=== PATIENT | female | born 1960 | race Caucasian/White ===

== ENCOUNTER 2018-05-15 16:03 | Inpatient (IN) | payer MEDICAID ==
[~2018-05-15] VITALS: Ht 167.6 cm; Wt 75.8 kg
--- NOTE | ~2018-05-15 | MORECARE ---
CASE MANAGEMENT DISCHARGE SUMMARY PATIENT: SHERRY DELONG UNIT: [id number] ADM DATE: 05/15/18 AGE: 57 : 62 SEX: F ROOM/BED: D.2219 AUTHOR: GINA,DOC PHYSICIAN: REFERRING PHYSICIAN: CLEMENTE PORTER MD DATE OF SERVICE: 05/15/18 Discharge Plan Patient Name: SHERRY DELONG Facility: [facility]:[place] : 1960 Planned Disposition: Home Anticipated Discharge Date: 05/18/18 Discharge Date: Expected LOS: 3 Initial Reviewer: [email or web address] Initial Review Date: 05/15/2018 Generated: 05/15/18 7:51 pm DCP- Discharge Planning Updated by [email or web address]: Nathalia Rice on 05/15/18 5:[address] Patient Name: SHERRY DELONG Admission Status: ER Accout number: [id number] Admission Date: 05-15-2018 : 1960 Admission Diagnosis: Attending: CLEMENTE PORTER Current LOS: 1 Anticipated DC Date: 05-18-2018 Planned Disposition: Home Primary Insurance: [employer] [place] [employer] [place] Discharge Planning Comments: CM met with patient to complete initial dc planning assessment. CM educated patient on the CM role and verbal consent given by patient to complete assessment. Patient lives at home with her significant other. She reports she is independent in her care at home but she does not drive. At discharge patient plans to return home and feels this is a safe discharge. Patient denied known discharge needs at this time. CM will continue to follow and will assist as needed with dc plans/needs. See below for more assessment information. Cable Puller: Nathalia Rice RN, [facility] DCPIA - Discharge Planning Initial Assessment Updated by [email or web address]: Nathalia Rice on 05/15/18 6:45 pm * Is the patient Alert and Oriented? Yes * How many steps to enter\exit or inside your home? * PCP Don't have one. Has seen Dr. Vu one time. * Pharmacy [facility] * Preadmission Environment Home with Family * ADLs Independent * Equipment Cane * List name and contact numbers for known caregivers / representatives who currently or will assist patient after discharge: Wilmer pizarro [facility] - [phone] Linda carty- [phone] * Verbal permission to speak to the caregivers and representatives has been obtained from the patient. Yes * Community resources currently utilized None * Additional services required to return to the preadmission environment? No * Can the patient safely return to the preadmission environment? Yes * Has this patient been hospitalized within the prior 30 days at any hospital? No Last DP export: 05/15/18 5:44 Patient Name: SHERRY DELONG Page 02615 at 1851 All edits/amendments must be made on the electronic document DICTATION DATE: 05/15/181849 FIRE PROTECTION FABRICATOR: GISSELL 05/15/181849 RPT#: [id number] DC DATE: STATUS: ADM IN [facility] [address] [place] [address] END OF REPORT
--- NOTE | ~2018-05-15 | MORECARE ---
CASE MANAGEMENT DISCHARGE SUMMARY PATIENT: SHERRY DELONG UNIT: [id number] ADM DATE: 05/15/18 AGE: 57 : 62 SEX: F ROOM/BED: D.2219 AUTHOR: GINA,DOC PHYSICIAN: REFERRING PHYSICIAN: CLEMENTE PORTER MD DATE OF SERVICE: 05/17/18 Discharge Plan Patient Name: SHERRY DELONG Facility: [facility]:[place] : 1960 Planned Disposition: Home Anticipated Discharge Date: 05/18/18 Discharge Date: Expected LOS: 3 Initial Reviewer: [email or web address] Initial Review Date: 05/15/2018 Generated: 05/17/18 3:03 pm Comments DCP- Discharge Planning Updated by [email or web address]: Lesly Santos on 05/17/18 12:[address] Patient Name: SHERRY DELONG Encounter No: [id number] : 1960 Primary Insurance: [employer] [facility] Anticipated DC Date: 05-18-2018 Planned Disposition: Home External Planned Provider: : DCP follow-up note: Patient and family in agreement with discharge plan. No changes to plan. Case management will follow and assist as needed. Lesly Santos DCP- Discharge Planning Updated by [email or web address]: Nathalia Rice on 05/15/18 5:[address] Patient Name: SHERRY DELONG Admission Status: ER Accout number: [id number] Admission Date: 05-15-2018 : 1960 Admission Diagnosis: Attending: CLEMENTE PORTER Current LOS: 1 Anticipated DC Date: 05-18-2018 Planned Disposition: Home Primary Insurance: [employer] [facility] Discharge Planning Comments: CM met with patient to complete initial dc planning assessment. CM educated patient on the CM role and verbal consent given by patient to complete assessment. Patient lives at home with her significant other. She reports she is independent in her care at home but she does not drive. At discharge patient plans to return home and feels this is a safe discharge. Patient denied known discharge needs at this time. CM will continue to follow and will assist as needed with dc plans/needs. See below for more assessment information. Plaster Applicator: Nathalia Rice RN, [facility] DCPIA - Discharge Planning Initial Assessment Updated by [email or web address]: Nathalia Rice on 05/15/18 6:45 pm * Is the patient Alert and Oriented? Yes * How many steps to enter\exit or inside your home? * PCP Don't have one. Has seen Dr. Vu one time. * Pharmacy [facility] * Preadmission Environment Home with Family * ADLs Independent * Equipment Cane * List name and contact numbers for known caregivers / representatives who currently or will assist patient after discharge: Wilmer Levine - sig other - [phone] Linda Saavedra - daughter- [phone] * Verbal permission to speak to the caregivers and representatives has been obtained from the patient. Yes * Community resources currently utilized None * Additional services required to return to the preadmission environment? No * Can the patient safely return to the preadmission environment? Yes * Has this patient been hospitalized within the prior 30 days at any hospital? No Last DP export: 05/15/18 5:51 Patient Name: SHERRY DELONG Page 82732 at 1403 All edits/amendments must be made on the electronic document DICTATION DATE: 05/17/18 140 SCREENER AND BLENDER: GISSELL 05/17/18 140 RPT#: [id number] DC DATE: STATUS: ADM IN [facility] [address] [place] [address] END OF REPORT
--- NOTE | ~2018-05-15 | MORECARE ---
CASE MANAGEMENT DISCHARGE SUMMARY PATIENT: SHERRY DELONG UNIT: [id number] ADM DATE: 05/15/18 AGE: 57 : 62 SEX: F ROOM/BED: D.2219 AUTHOR: OLEG FUENTES PHYSICIAN: REFERRING PHYSICIAN: CLEMENTE PORTER MD DATE OF SERVICE: 05/15/18 Discharge Plan Patient Name: SHERRY DELONG Facility: [facility]:[place] : 1960 Planned Disposition: Home Anticipated Discharge Date: 05/18/18 Discharge Date: Expected LOS: 3 Initial Reviewer: [email or web address] Initial Review Date: 05/15/2018 Generated: 05/15/18 7:44 pm Patient Name: SHERRY DELONG Page 95406 at 1844 All edits/amendments must be made on the electronic document DICTATION DATE: 05/15/181843 COLOR DRUM WORKER: GISSELL 05/15/181843 RPT#: [id number] DC DATE: STATUS: ADM IN [facility] [address] [place] [address] END OF REPORT
--- NOTE | ~2018-05-15 | MORECARE ---
CASE MANAGEMENT DISCHARGE SUMMARY PATIENT: SHERRY DELONG UNIT: [id number] ADM DATE: 05/15/18 AGE: 57 : 62 SEX: F ROOM/BED: D.2219 AUTHOR: GINADOC PHYSICIAN: REFERRING PHYSICIAN: CLEMENTE PORTER MD DATE OF SERVICE: 05/20/18 Discharge Plan Patient Name: SHERRY DELONG Facility: [facility]:[place] : 1960 Planned Disposition: Home Anticipated Discharge Date: 05/18/18 Discharge Date: 05/17/2018 Expected LOS: 3 Initial Reviewer: [email or web address] Initial Review Date: 05/15/2018 Generated: 05/20/18 10:25 am Comments DCP- Discharge Planning Updated by [email or web address]: Lesly Santos on 05/17/18 12:[address] Patient Name: SHERRY DELONG Encounter No: [id number] : 1960 Primary Insurance: [employer] ROSSY Anticipated DC Date: 05-18-2018 Planned Disposition: Home External Planned Provider: : DCP follow-up note: Patient and family in agreement with discharge plan. No changes to plan. Case management will follow and assist as needed. Lesly Santos DCP- Discharge Planning Updated by [email or web address]: Nathalia Rice on 05/15/18 5:[address] Patient Name: SHERRY DELONG Admission Status: ER Accout number: [id number] Admission Date: 05-15-2018 : 1960 Admission Diagnosis: Attending: CLEMENTE PORTER Current LOS: 1 Anticipated DC Date: 05-18-2018 Planned Disposition: Home Primary Insurance: [employer] ROSSY Discharge Planning Comments: CM met with patient to complete initial dc planning assessment. CM educated patient on the CM role and verbal consent given by patient to complete assessment. Patient lives at home with her significant other. She reports she is independent in her care at home but she does not drive. At discharge patient plans to return home and feels this is a safe discharge. Patient denied known discharge needs at this time. CM will continue to follow and will assist as needed with dc plans/needs. See below for more assessment information. Electrophonic Engineer: Nathalia Rice RN, [facility] DCPIA - Discharge Planning Initial Assessment Updated by [email or web address]: Nathalia Rice on 05/15/18 6:45 pm * Is the patient Alert and Oriented? Yes * How many steps to enter\exit or inside your home? * PCP Don't have one. Has seen Dr. Vu one time. * Pharmacy [facility] * Preadmission Environment Home with Family * ADLs Independent * Equipment Cane * List name and contact numbers for known caregivers / representatives who currently or will assist patient after discharge: Wilmer Levine - sig other - [phone] Linda Saavedra - daughter- [phone] * Verbal permission to speak to the caregivers and representatives has been obtained from the patient. Yes * Community resources currently utilized None * Additional services required to return to the preadmission environment? No * Can the patient safely return to the preadmission environment? Yes * Has this patient been hospitalized within the prior 30 days at any hospital? No Last DP export: 05/17/18 1:03 Patient Name: SHERRY DELONG Page 16845 at 0925 All edits/amendments must be made on the electronic document DICTATION DATE: 05/20/18924 MARKETING SUPPORT ASSISTANT: GISSELL 05/20/18924 RPT#: [id number] DC DATE:05/17/18 STATUS: DIS IN [facility] [address] [place] [address] END OF REPORT
[~2018-05-15 16:03] MED LIST: ACETAMINOPHEN325 MG PO; BACTRIM DS TABL1 TAB PO; BAYER CHEWABLE81 MG PO; HYDROCODON-ACE1 EAC7 PO; PERCOCET 10/3251 TA1 PO; PLAVIX75 MG PO; SLEEP AID25 M1 PO; ZOFRAN4 MG PO
[2018-05-15] MEDS ORDERED: LAXATIVE (16:12)
[2018-05-15] MEDS ORDERED: TYLENOL PM1 TAB (16:12)
[2018-05-15 16:48] LABS: APPEARANCE HAZY (CLEAR); BACTERIA FEW /hpf (NONE SEEN); BILIRUBIN NEGATIVE (NEGATIVE); COLOR YELLOW (YELLOW); EPITHELIAL CELLS 0-5 /hpf (0-5); GLUCOSE NEGATIVE (NEGATIVE); KETONE NEGATIVE (NEGATIVE); NITRITE NEGATIVE (NEGATIVE); PROTEIN NEGATIVE (NEGATIVE); SPECIFIC GRAVITY 1.015 (1.005-1.020); UROBILINOGEN NORMAL (NORMAL); WHITE CELLS - URINE 0-5 /hpf (0-5)
[2018-05-15 16:49] LABS: AMORPHOUS SEDIMENT <1+ /lpf (NONE SEEN)
[2018-05-15 17:04] LABS: HEMATOCRIT 42.7 % (36.0-48.0); HEMOGLOBIN 14.8 g/dL (12-16); MCH 34.8 pg (26.0-34.0); MCHC 34.7 g/dL (31.0-37.0); MCV 100.5 fL (80.0-100.0); MEAN PLATELET VOLUME 10.6 fL (7.4-10.4); PLATELET COUNT 407 10x3/uL (130-400); RBC 4.25 10x6/uL (4.00-5.40); RDW 14.1 % (11.5-14.5); WBC 26.4 10x3/uL (4.8-10.8)
[2018-05-15 17:16] LABS: ANION GAP 14.2 mmol/L (8-16); BILIRUBIN - TOTAL 0.84 mg/dL (0.2-1.3); CALCIUM 9.5 mg/dL (8.5-10.1); CARBON DIOXIDE 26.2 mmol/L (21.0-32.0); CREATININE - SERUM 0.9 mg/dL (0.6-1.3); POTASSIUM - SERUM 3.4 mmol/L (3.5-5.1); PROTEIN - SERUM 7.6 g/dL (6.4-8.2)
[2018-05-15 17:20] LABS: TROPONIN-I 0.036 ng/mL (0.000-0.060)
[2018-05-15 17:28] LABS: LYMPHOCYTES 5 % (15-50); MONOCYTES 3 % (2-11); NEUTROPHILS 89 % (40-80)
[2018-05-15 17:29] LABS: PLATELET ESTIMATE NORMAL; PLATELET MORPHOLOGY NORMAL PLT MORPH
[2018-05-15] MEDS ORDERED: BENADRYL25 MG PO (18:55)
[2018-05-15 20:06] VITALS: BP 130/75
[2018-05-15 20:32] VITALS: BP 130/75; BMI 27.0
[2018-05-16 04:26] VITALS: BP 120/54
[2018-05-16 06:47] LABS: BASOPHILS 0.1 % (0-2); EOSINOPHILS 0.4 % (0-7); HEMATOCRIT 38.1 % (36.0-48.0); HEMOGLOBIN 12.7 g/dL (12-16); IMMATURE GRANULOCYTES 0.3 % (0-5); MCHC 33.3 g/dL (31.0-37.0); MCV 102.1 fL (80.0-100.0); MEAN PLATELET VOLUME 11.1 fL (7.4-10.4); MONOCYTES 4.5 % (2-11); NEUTROPHILS 84.7 % (40-80); PLATELET COUNT 293 10x3/uL (130-400); RBC 3.73 10x6/uL (4.00-5.40); RDW 14.3 % (11.5-14.5); WBC 21.5 10x3/uL (4.8-10.8)
[2018-05-16 06:53] LABS: ALBUMIN 2.4 g/dL (3.4-5.0); ALKALINE PHOSPHATASE 210 U/L (46-116); CALCIUM 8.4 mg/dL (8.5-10.1); CARBON DIOXIDE 25.9 mmol/L (21.0-32.0); CHLORIDE - SERUM 99 mmol/L (98-107); CHOL - HDL RATIO 6.4 ratio (2.3-4.1); CHOLESTEROL, TOTAL 166 mg/dL (0-200); CREATININE - SERUM 0.7 mg/dL (0.6-1.3); HDL CHOLESTEROL 26 mg/dL (32-96); LDL CHOLESTEROL 122 mg/dL (0-100); LDL-HDL RATIO 4.7 ratio (1.5-3.5); LIPASE 492 U/L (73-393); MAGNESIUM - SERUM 1.6 mg/dL (1.8-2.4); PHOSPHOROUS 2.6 mg/dL (2.5-4.9); PROTEIN - SERUM 6.2 g/dL (6.4-8.2); SODIUM 135 mmol/L (136-145); TRIGLYCERIDE 93 mg/dL (30-200); UREA NITROGEN 9 mg/dL (7-18); eGFR NON AFRICAN AMERICAN > 90 mL/min (90-120)
[2018-05-16 06:58] LABS: AMYLASE - SERUM 229 U/L (25-115)
[2018-05-16 07:00] LABS: ALT (SGPT) 31 U/L (10-68); CALC OSMOLALITY 266 mosm/kg (275-300); GLUCOSE 69 mg/dL (74-106); POTASSIUM - SERUM 2.9 mmol/L (3.5-5.1)
[2018-05-16 09:47] VITALS: BP 123/67
[2018-05-16 11:47] LABS: CHOL - HDL RATIO 6.4 ratio (2.3-4.1); LDL-HDL RATIO 4.7 ratio (1.5-3.5); MAGNESIUM - SERUM 1.6 mg/dL (1.8-2.4)
[2018-05-16 13:46] VITALS: BP 148/52
[2018-05-16 16:47] VITALS: BP 110/68
[2018-05-16 21:29] VITALS: BP 113/60
[2018-05-17 05:02] VITALS: BP 117/71
[2018-05-17 05:25] LABS: BASOPHILS 0.2 % (0-2); HEMATOCRIT 34.2 % (36.0-48.0); IMMATURE GRANULOCYTES 0.2 % (0-5); LYMPHOCYTES 20.9 % (15-50); MCH 33.3 pg (26.0-34.0); MCHC 32.2 g/dL (31.0-37.0); MCV 103.6 fL (80.0-100.0); MEAN PLATELET VOLUME 11.4 fL (7.4-10.4); MONOCYTES 4.6 % (2-11); NEUTROPHILS 71.1 % (40-80); PLATELET COUNT 264 10x3/uL (130-400); RDW 14.2 % (11.5-14.5)
[2018-05-17 05:41] LABS: CALC OSMOLALITY 276 mosm/kg (275-300); CARBON DIOXIDE 25.8 mmol/L (21.0-32.0); CHLORIDE - SERUM 105 mmol/L (98-107); CREATININE - SERUM 0.6 mg/dL (0.6-1.3); LIPASE 229 U/L (73-393); POTASSIUM - SERUM 3.3 mmol/L (3.5-5.1); SODIUM 141 mmol/L (136-145); UREA NITROGEN 7 mg/dL (7-18); eGFR NON AFRICAN AMERICAN > 90 mL/min (90-120)
[2018-05-17 05:47] LABS: WBC 12.2 10x3/uL (4.8-10.8)
[2018-05-17 05:52] LABS: AMYLASE - SERUM 83 U/L (25-115); GLUCOSE 63 mg/dL (74-106)
[2018-05-17 08:44] VITALS: BP 122/69
[2018-05-17 09:50] LABS: MAGNESIUM - SERUM 2.3 mg/dL (1.8-2.4)
[2018-05-17] MEDS ORDERED: THIAMINE HCL50 MG PO (12:19)
[2018-05-17] MEDS ORDERED: FOLATE0.4 MG PO (12:19)
[2018-05-17] MEDS ORDERED: Nicoderm [PBKC] TRANSDERM (12:19)
[2018-05-17 12:20] VITALS: BP 131/63
[2018-05-17 12:31] VITALS: Ht 167.6 cm; Wt 75.8 kg
== END 2018-05-17 16:30 | disposition home or self-care (01) | DRG 439 ==
LOC: D.ER 16:03 → D.MS 18:16
PROVIDERS: Family Medicine; Internal Medicine Nephrology
DX: K85.20 Alcohol induced acute pancreatitis without necrosis or infection (principal); F17.213 Nicotine dependence, cigarettes, with withdrawal; D64.9 Anemia, unspecified; K29.70 Gastritis, unspecified, without bleeding; E87.6 Hypokalemia; E83.42 Hypomagnesemia

== ENCOUNTER 2019-01-04 05:59 | Inpatient (IN) | payer MEDICAID ==
[~2019-01-04] VITALS: Ht 167.6 cm; Wt 72.6 kg
[~2019-01-04 05:59] MED LIST changes: +BENADRYL25 MG PO; +FOLATE0.4 MG PO; +LAXATIVE; +Nicoderm [PBKC] TRANSDERM; +THIAMINE HCL50 MG PO; +TYLENOL PM1 TAB
--- NOTE | 2019-01-04 06:11 | NUR ---
MENTAL HEALTH NURSE MADE AWARE OF NEED FOR ASSESSMENT.
--- NOTE | 2019-01-04 06:26 | NUR ---
DR LAST NOTIFIED AND REVIEWED PT's BEHAVIOR AND ASSESSMENT RESULTS. PT IS A LOW RISK PER DR LAST. DR LAST STATED TO GIVE RESOURCES TO PT AT TIME OF DISCHARGE. NO FURTHER ORDERS AT THIS TIE. RESOURCES REVIEWED WITH PT AND SHE VERBALIZED UNDERSTANDING.
[2019-01-04 06:32] LABS: BASOPHILS 0.1 % (0-2); EOSINOPHILS 0.1 % (0-7); HEMATOCRIT 38.2 % (36.0-48.0); HEMOGLOBIN 13.3 g/dL (12-16); IMMATURE GRANULOCYTES 0.3 % (0-5); LYMPHOCYTES 5.1 % (15-50); MCH 32.7 pg (26.0-34.0); MCHC 34.8 g/dL (31.0-37.0); MCV 93.9 fL (80.0-100.0); MEAN PLATELET VOLUME 10.8 fL (7.4-10.4); MONOCYTES 4.1 % (2-11); NEUTROPHILS 90.3 % (40-80); RBC 4.07 10x6/uL (4.00-5.40); RDW 14.1 % (11.5-14.5); WBC 16.7 10x3/uL (4.8-10.8)
--- NOTE | 2019-01-04 06:34 | NUR ---
GLYCERIN SWABS PROVIDED PER PT REQUESTING SOME WATER TO DRINK.
[2019-01-04 06:35] VITALS: BP 198/86
[2019-01-04 06:47] LABS: ALBUMIN 3.1 g/dL (3.4-5.0); ALKALINE PHOSPHATASE 333 U/L (46-116); ALT (SGPT) 76 U/L (10-68); BILIRUBIN - TOTAL 3.24 mg/dL (0.2-1.3); CALC OSMOLALITY 278 mosm/kg (275-300); CALCIUM 9.4 mg/dL (8.5-10.1); CARBON DIOXIDE 24.8 mmol/L (21.0-32.0); CHLORIDE - SERUM 100 mmol/L (98-107); CREATININE - SERUM 0.8 mg/dL (0.6-1.3); POTASSIUM - SERUM 3.1 mmol/L (3.5-5.1); PROTEIN - SERUM 7.5 g/dL (6.4-8.2); SODIUM 138 mmol/L (136-145); UREA NITROGEN 7 mg/dL (7-18); eGFR NON AFRICAN AMERICAN 78 mL/min (90-120)
[2019-01-04 06:48] LABS: GLUCOSE 189 mg/dL (74-106)
[2019-01-04 06:50] LABS: PLATELET COUNT 435 10x3/uL (130-400)
[2019-01-04 06:51] LABS: AMYLASE - SERUM 237 U/L (25-115); LIPASE 1024 U/L (73-393); MAGNESIUM - SERUM 1.3 mg/dL (1.8-2.4); TROPONIN-I < 0.017 ng/mL (0.000-0.060)
[2019-01-04 07:00] VITALS: BP 190/71
--- NOTE | 2019-01-04 07:05 | NUR ---
BEDSIDE REPORT HANDED OFF TO VINICIO HOU RN VIA SBAR.
--- NOTE | 2019-01-04 10:15 | NUR ---
RECEIVED PT FROM ER VIA WHEELCHAIR ACCOMPANIED BY ER STAFF. ALERT AND ORIENTED. UP AD ALLEN. IV TO RIGHT HAND, BANANA BAG INFUSING. SITE PATENT WITHOUT REDNESS OR SWELLING. IV TO LEFT THUMB, ANTIBIOTIC INFUSING. SITE PATENT WITHOUT REDNESS OR SWELLING. PT NPO. ON ELECTROLYTE PROTOCOL. NO C/O PAIN. NO S/S OF ACUTE DISTRESS NOTED. CALL LIGHT IN REACH. WILL CONTINUE TO MONITOR.
[2019-01-04 11:03] LABS: APPEARANCE CLEAR (CLEAR); BACTERIA FEW /hpf (NONE SEEN); BILIRUBIN 1+ (NEGATIVE); COLOR DK YELLOW (YELLOW); EPITHELIAL CELLS OCC /hpf (0-5); GLUCOSE NEGATIVE (NEGATIVE); KETONE NEGATIVE (NEGATIVE); MUCUS <1+ /lpf (NONE SEEN); NITRITE NEGATIVE (NEGATIVE); PROTEIN NEGATIVE (NEGATIVE); RED CELLS - URINE RARE /hpf (0-5); SPECIFIC GRAVITY 1.015 (1.005-1.020); WHITE CELLS - URINE OCC /hpf (0-5)
[2019-01-04 11:04] LABS: UDS - AMPHET NEGATIVE QUAL (NEGATIVE); UDS - BARB NEGATIVE QUAL (NEGATIVE); UDS - BENZO NEGATIVE QUAL (NEGATIVE); UDS - COCAINE NEGATIVE QUAL (NEGATIVE); UDS - OPIATE POSITIVE QUAL (NEGATIVE); UDS - PCP NEGATIVE QUAL (NEGATIVE); UDS - THC POSITIVE QUAL (NEGATIVE)
[2019-01-04 12:00] VITALS: BP 111/48
[2019-01-04 16:12] VITALS: BP 111/48; BMI 25.8
[2019-01-04 17:06] VITALS: BP 104/56
--- NOTE | 2019-01-04 18:52 | NUR ---
PT RESTING IN BED, EYES OPEN. NO C/O PAIN. NO S/S OF ACUTE DISTRESS NOTED. PT DENIES ANYTHING FURTHER. WILL CONTINUE TO MONITOR.
[2019-01-04 21:07] VITALS: BP 115/59
[2019-01-05] VITALS (12 sets, daily range): BP systolic 108–162; BP diastolic 52–80; Ht 167.6 cm; Wt 72.6 kg
--- NOTE | 2019-01-05 02:31 | NUR ---
REC'D CHGE. OF SHIFT WATCHING TV DENIES N/V OR ABDOMINAL PAIN AT PRESENT TIME, WILL CONTINUE TO MONITOR FOR ANY CHGES. AND FOLLOW CURRENT PLAN OF CARE.
[2019-01-05 06:29] LABS: BASOPHILS 0.1 % (0-2); EOSINOPHILS 4.5 % (0-7); HEMATOCRIT 34.8 % (36.0-48.0); HEMOGLOBIN 11.4 g/dL (12-16); IMMATURE GRANULOCYTES 0.4 % (0-5); LYMPHOCYTES 31.3 % (15-50); MCH 30.9 pg (26.0-34.0); MCHC 32.8 g/dL (31.0-37.0); MCV 94.3 fL (80.0-100.0); MEAN PLATELET VOLUME 10.9 fL (7.4-10.4); MONOCYTES 5.2 % (2-11); NEUTROPHILS 58.5 % (40-80); RBC 3.69 10x6/uL (4.00-5.40); RDW 14.6 % (11.5-14.5)
[2019-01-05 06:48] LABS: PLATELET COUNT 293 10x3/uL (130-400); WBC 6.9 10x3/uL (4.8-10.8)
--- NOTE | 2019-01-05 06:49 | NUR ---
I have reviewed this patient and I concur with the Shift Assessment completed by the Licensed Practical Nurse today this shift.
[2019-01-05 06:55] LABS: ALBUMIN 2.4 g/dL (3.4-5.0); ALKALINE PHOSPHATASE 255 U/L (46-116); ALT (SGPT) 63 U/L (10-68); BILIRUBIN - TOTAL 4.69 mg/dL (0.2-1.3); CALCIUM 8.5 mg/dL (8.5-10.1); CARBON DIOXIDE 24.9 mmol/L (21.0-32.0); CHLORIDE - SERUM 108 mmol/L (98-107); CREATININE - SERUM 0.7 mg/dL (0.6-1.3); LIPASE 744 U/L (73-393); PROTEIN - SERUM 6.4 g/dL (6.4-8.2); SODIUM 141 mmol/L (136-145); eGFR NON AFRICAN AMERICAN > 90 mL/min (90-120)
[2019-01-05 06:58] LABS: AMYLASE - SERUM 157 U/L (25-115); CALC OSMOLALITY 278 mosm/kg (275-300); GLUCOSE 113 mg/dL (74-106); INR 0.98 (0.85-1.17); MAGNESIUM - SERUM 2.8 mg/dL (1.8-2.4); POTASSIUM - SERUM 3.7 mmol/L (3.5-5.1); PROTIME 12.5 SECONDS (11.6-15.0); UREA NITROGEN 5 mg/dL (7-18)
--- NOTE | 2019-01-05 07:45 | NUR ---
PATIENT SAYS SHE IS "PISSED BECUASE SHE CAN'T GET THE PHONE TO WORK" SAID THAT SHE PRESSES 9. WISHES TO KNOW WHEN HER PROCEDURE IS. CL AND PHONE IN REACH. REMA
[2019-01-06] VITALS: BP 138/67
[2019-01-06 04:00] VITALS: BP 146/73
[2019-01-06 07:29] LABS: BASOPHILS 0.2 % (0-2); EOSINOPHILS 0.8 % (0-7); HEMATOCRIT 30.5 % (36.0-48.0); HEMOGLOBIN 10.1 g/dL (12-16); IMMATURE GRANULOCYTES 0.2 % (0-5); LYMPHOCYTES 25.3 % (15-50); MCH 31.6 pg (26.0-34.0); MCHC 33.1 g/dL (31.0-37.0); MCV 95.3 fL (80.0-100.0); MEAN PLATELET VOLUME 11.3 fL (7.4-10.4); MONOCYTES 5.5 % (2-11); PLATELET COUNT 287 10x3/uL (130-400); RDW 14.7 % (11.5-14.5)
[2019-01-06 07:31] LABS: WBC 9.7 10x3/uL (4.8-10.8)
--- NOTE | 2019-01-06 07:34 | NUR ---
I have reviewed this patient and I concur with the Shift Assessment completed by the Licensed Practical Nurse today this shift.
[2019-01-06 07:54] LABS: ALBUMIN 2.4 g/dL (3.4-5.0); ALKALINE PHOSPHATASE 230 U/L (46-116); ALT (SGPT) 54 U/L (10-68); AMYLASE - SERUM 126 U/L (25-115); BILIRUBIN - TOTAL 1.48 mg/dL (0.2-1.3); CALCIUM 8.4 mg/dL (8.5-10.1); CARBON DIOXIDE 25.3 mmol/L (21.0-32.0); CHLORIDE - SERUM 109 mmol/L (98-107); CREATININE - SERUM 0.6 mg/dL (0.6-1.3); GLUCOSE 81 mg/dL (74-106); LIPASE 469 U/L (73-393); POTASSIUM - SERUM 3.8 mmol/L (3.5-5.1); PROTEIN - SERUM 5.6 g/dL (6.4-8.2); SODIUM 143 mmol/L (136-145); eGFR NON AFRICAN AMERICAN > 90 mL/min (90-120)
[2019-01-06 07:56] LABS: CALC OSMOLALITY 281 mosm/kg (275-300); UREA NITROGEN 7 mg/dL (7-18)
--- NOTE | 2019-01-06 08:23 | NUR ---
PATIENT WONDERING WHAT TIME HER MRI WILL BE. I TOLD HER I WILL TRY TO FIND OUT. STATES HER CHILDREN DO NOT EVEN KNOW SHE WAS IN THE HOSPITAL. CL IN REACH. NO FURTHER NEEDS.
[2019-01-06 08:47] VITALS: BP 164/81
[2019-01-06 14:10] VITALS: BP 146/58
[2019-01-06 16:03] VITALS: BP 165/77
[2019-01-06 20:00] VITALS: BP 159/71
--- NOTE | 2019-01-06 20:00 | NUR ---
ALERT SITTING UP IN BED, NO APPARENT DISTRESS, SEE SHIFT ASSESSMENT, CALL LIGHT IN REACH
[2019-01-07] VITALS: BP 153/77
[2019-01-07 04:00] VITALS: BP 105/79
[2019-01-07 06:56] LABS: ALBUMIN 2.4 g/dL (3.4-5.0); ALKALINE PHOSPHATASE 208 U/L (46-116); ALT (SGPT) 48 U/L (10-68); AMYLASE - SERUM 149 U/L (25-115); BILIRUBIN - TOTAL 1.09 mg/dL (0.2-1.3); CALCIUM 8.8 mg/dL (8.5-10.1); CARBON DIOXIDE 27.1 mmol/L (21.0-32.0); CHLORIDE - SERUM 110 mmol/L (98-107); CREATININE - SERUM 0.6 mg/dL (0.6-1.3); GLUCOSE 94 mg/dL (74-106); LIPASE 612 U/L (73-393); POTASSIUM - SERUM 3.3 mmol/L (3.5-5.1); PROTEIN - SERUM 6.2 g/dL (6.4-8.2); SODIUM 146 mmol/L (136-145); eGFR NON AFRICAN AMERICAN > 90 mL/min (90-120)
[2019-01-07 06:58] LABS: CALC OSMOLALITY 287 mosm/kg (275-300); UREA NITROGEN 4 mg/dL (7-18)
[2019-01-07 07:44] LABS: BASOPHILS 0.4 % (0-2); EOSINOPHILS 4.4 % (0-7); HEMATOCRIT 34.8 % (36.0-48.0); HEMOGLOBIN 11.3 g/dL (12-16); IMMATURE GRANULOCYTES 0.3 % (0-5); LYMPHOCYTES 43.9 % (15-50); MCH 31.1 pg (26.0-34.0); MCHC 32.5 g/dL (31.0-37.0); MCV 95.9 fL (80.0-100.0); MEAN PLATELET VOLUME 11.4 fL (7.4-10.4); MONOCYTES 3.9 % (2-11); NEUTROPHILS 47.1 % (40-80); PLATELET COUNT 299 10x3/uL (130-400); RBC 3.63 10x6/uL (4.00-5.40); RDW 14.9 % (11.5-14.5); WBC 7.7 10x3/uL (4.8-10.8)
[2019-01-07 08:29] VITALS: BP 179/87
--- NOTE | 2019-01-07 12:37 | NUR ---
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 PATIENT WAS NPO THIS MORING FOR MRCP. PATIENT STATED SHE HAS ONLY HAD CLEAR LIQUIDS SINCE BEING IN HOSPITAL AND IS READY FOR SOME "REAL FOOD". NOTED PATEINT IS NOW ON LOW RESIDUE DIET. OBSERVED TRAY CART WITH CORRECT DIET ORDERS. NOTIFIED PATIENT, SHE WAS VERY APPRECIATIVE AND PLEASED TO RECEIVE LOW RESIDUE MEAL. WILL MONTIOR DIET TOLERANCE. RD FOLLOWING
[2019-01-07 13:32] VITALS: BP 183/88
--- NOTE | 2019-01-07 14:50 | NUR ---
PATIENT WALKING THE HALLS WITH FAMILY. NO CONCERNS AT THIS TIME.
[2019-01-07 18:19] VITALS: BP 166/76
--- NOTE | 2019-01-07 19:15 | NUR ---
RECEIVED CARE FROM DAY NURSE. SITTING UP IN BED WITH JENNY AT SIDE. REPORTS NO NEEDS AT THIS TIME. CALL LIGHT AT SIDE.
[2019-01-07 21:13] VITALS: BP 116/65
--- NOTE | 2019-01-08 03:00 | NUR ---
I have reviewed this patient and I concur with the Shift Assessment completed by the Licensed Practical Nurse today this shift.
[2019-01-08 05:10] VITALS: BP 168/85
[2019-01-08 07:06] LABS: BASOPHILS 0.6 % (0-2); EOSINOPHILS 7.2 % (0-7); HEMATOCRIT 37.2 % (36.0-48.0); HEMOGLOBIN 12.3 g/dL (12-16); IMMATURE GRANULOCYTES 0.4 % (0-5); LYMPHOCYTES 40.2 % (15-50); MCH 31.9 pg (26.0-34.0); MCHC 33.1 g/dL (31.0-37.0); MCV 96.4 fL (80.0-100.0); MEAN PLATELET VOLUME 11.7 fL (7.4-10.4); MONOCYTES 6.2 % (2-11); NEUTROPHILS 45.4 % (40-80); PLATELET COUNT 309 10x3/uL (130-400); RBC 3.86 10x6/uL (4.00-5.40); WBC 7.1 10x3/uL (4.8-10.8)
[2019-01-08 07:32] LABS: ALBUMIN 2.5 g/dL (3.4-5.0); ALKALINE PHOSPHATASE 221 U/L (46-116); ALT (SGPT) 39 U/L (10-68); AMYLASE - SERUM 161 U/L (25-115); BILIRUBIN - TOTAL 0.82 mg/dL (0.2-1.3); CALC OSMOLALITY 283 mosm/kg (275-300); CARBON DIOXIDE 28.1 mmol/L (21.0-32.0); CHLORIDE - SERUM 108 mmol/L (98-107); CREATININE - SERUM 0.7 mg/dL (0.6-1.3); GLUCOSE 106 mg/dL (74-106); LIPASE 810 U/L (73-393); PROTEIN - SERUM 6.5 g/dL (6.4-8.2); SODIUM 144 mmol/L (136-145); UREA NITROGEN 4 mg/dL (7-18); eGFR NON AFRICAN AMERICAN > 90 mL/min (90-120)
[2019-01-08 08:45] VITALS: BP 171/93
[2019-01-08 12:41] VITALS: BP 168/108
--- NOTE | 2019-01-08 12:47 | MORECARE ---
CASE MANAGEMENT DISCHARGE SUMMARY PATIENT: SHERRY DELONG UNIT: [id number] ADM DATE: 01/04/19 AGE: 58 : 62 SEX: F ROOM/BED: D.2239 AUTHOR: OLEG FUENTES PHYSICIAN: REFERRING PHYSICIAN: CLEMENTE PORTER MD DATE OF SERVICE: 01/08/19 Discharge Plan Patient Name: SHERRY DELONG Facility: [facility]:[place] : 1960 Planned Disposition: Home Anticipated Discharge Date: 01/08/19 Discharge Date: Expected LOS: 4 Initial Reviewer: [email or web address] Initial Review Date: 01/04/2019 Generated: 01/08/19 1:47 pm Patient Name: SHERRY DELONG Page 89710 at 1247 All edits/amendments must be made on the electronic document DICTATION DATE: 01/08/19 1246 DIRECTOR OF EARLY CHILDHOOD EDUCATION: GISSELL 01/08/19 1246 RPT#: [id number] DC DATE: STATUS: ADM IN [facility] [address] [place] [address] END OF REPORT
== END 2019-01-08 15:41 | disposition home or self-care (01) | DRG 444 ==
LOC: D.ER 05:59 → D.MS 07:29
PROVIDERS: Family Medicine; Internal Medicine Gastroenterology; ADMIT Internal Medicine Nephrology; ATTEND Internal Medicine Nephrology
PROC: 0F798DZ Dilation of Common Bile Duct with Intraluminal Device, Via Natural or Artificial Opening Endoscopic (ICD-10-PCS; principal; 2019-01-05 15:30)
DX: K83.1 Obstruction of bile duct (principal); K85.20 Alcohol induced acute pancreatitis without necrosis or infection; F17.203 Nicotine dependence unspecified, with withdrawal; K86.0 Alcohol-induced chronic pancreatitis; E83.42 Hypomagnesemia; E87.6 Hypokalemia; K21.9 Gastro-esophageal reflux disease without esophagitis; K29.70 Gastritis, unspecified, without bleeding; K58.9 Irritable bowel syndrome, unspecified; F32.9 Major depressive disorder, single episode, unspecified; F10.10 Alcohol abuse, uncomplicated; K80.20 Calculus of gallbladder without cholecystitis without obstruction; K80.50 Calculus of bile duct without cholangitis or cholecystitis without obstruction

== ENCOUNTER → 2019-02-10 08:58 | Outpatient (CLI) | payer MEDICAID ==
[2019-01-05 10:02] VITALS: BMI 25.8
[2019-02-10 09:47] LABS: BASOPHILS 0.4 % (0-2); EOSINOPHILS 4.8 % (0-7); HEMATOCRIT 38.1 % (36.0-48.0); HEMOGLOBIN 12.6 g/dL (12-16); IMMATURE GRANULOCYTES 0.1 % (0-5); LYMPHOCYTES 31.5 % (15-50); MCH 31.7 pg (26.0-34.0); MCHC 33.1 g/dL (31.0-37.0); MEAN PLATELET VOLUME 10.3 fL (7.4-10.4); MONOCYTES 4.5 % (2-11); NEUTROPHILS 58.7 % (40-80); PLATELET COUNT 266 10x3/uL (130-400); RBC 3.97 10x6/uL (4.00-5.40); RDW 13.4 % (11.5-14.5); WBC 7.1 10x3/uL (4.8-10.8)
[2019-02-10 10:08] LABS: ALBUMIN 3.4 g/dL (3.4-5.0); ALKALINE PHOSPHATASE 90 U/L (46-116); ALT (SGPT) 14 U/L (10-68); AMYLASE - SERUM 79 U/L (25-115); BILIRUBIN - TOTAL 0.35 mg/dL (0.2-1.3); CALC OSMOLALITY 277 mosm/kg (275-300); CARBON DIOXIDE 24.8 mmol/L (21.0-32.0); CHLORIDE - SERUM 105 mmol/L (98-107); CREATININE - SERUM 0.7 mg/dL (0.6-1.3); GLUCOSE 89 mg/dL (74-106); LIPASE 162 U/L (73-393); POTASSIUM - SERUM 4.1 mmol/L (3.5-5.1); PROTEIN - SERUM 6.6 g/dL (6.4-8.2); SODIUM 141 mmol/L (136-145); UREA NITROGEN 6 mg/dL (7-18); eGFR NON AFRICAN AMERICAN > 90 mL/min (90-120)
== END | disposition home or self-care (01) ==
LOC: D.LAB 08:58 → D.US 10:00
PROVIDERS: ATTEND Internal Medicine Gastroenterology
DX: R10.13 Epigastric pain (principal); R94.7 Abnormal results of other endocrine function studies

== ENCOUNTER → 2019-02-16 09:53 | Outpatient (CLI) | payer MEDICAID ==
[2019-01-05 10:02] VITALS: BMI 25.8
[~2019-02-16 09:53] MED LIST changes: +ATIVAN0.5 MG PO; +BISACODYL5 MG PO; +CLEOCIN HCL300 MG PO; +FLORAJEN3 CAPS460 MG PO; -LAXATIVE; +LEVAQUIN750 MG PO; +LINZESS PO; +LIPITOR20 MG PO
== END | disposition home or self-care (01) ==
LOC: D.RAD 09:53
PROVIDERS: ATTEND Internal Medicine Gastroenterology
DX: R10.9 Unspecified abdominal pain (principal)

== ENCOUNTER 2019-03-18 13:51 | Inpatient (IN) | payer MEDICAID ==
[~2019-03-18] VITALS: Ht 167.6 cm; Wt 83.0 kg
[~2019-03-18 13:51] MED LIST changes: -ATIVAN0.5 MG PO; -BISACODYL5 MG PO; -CLEOCIN HCL300 MG PO; -FLORAJEN3 CAPS460 MG PO; -LEVAQUIN750 MG PO; -LIPITOR20 MG PO
[2019-03-18 14:29] LABS: WBC 22.3 10x3/uL (4.8-10.8)
[2019-03-18 14:30] LABS: HEMATOCRIT 48.5 % (36.0-48.0); MCH 32.6 pg (26.0-34.0); MCHC 35.1 g/dL (31.0-37.0); MCV 92.9 fL (80.0-100.0); MEAN PLATELET VOLUME 10.8 fL (7.4-10.4); PLATELET COUNT 345 10x3/uL (130-400); RBC 5.22 10x6/uL (4.00-5.40); RDW 13.9 % (11.5-14.5)
[2019-03-18 14:41] LABS: ALBUMIN 3.3 g/dL (3.4-5.0); ALKALINE PHOSPHATASE 88 U/L (46-116); ALT (SGPT) 11 U/L (10-68); BILIRUBIN - TOTAL 1.09 mg/dL (0.2-1.3); CALC OSMOLALITY 269 mosm/kg (275-300); CALCIUM 9.3 mg/dL (8.5-10.1); CARBON DIOXIDE 21.2 mmol/L (21.0-32.0); CHLORIDE - SERUM 97 mmol/L (98-107); CREATININE - SERUM 1.1 mg/dL (0.6-1.3); POTASSIUM - SERUM 3.6 mmol/L (3.5-5.1); PROTEIN - SERUM 8.3 g/dL (6.4-8.2); SODIUM 132 mmol/L (136-145); UREA NITROGEN 13 mg/dL (7-18); eGFR NON AFRICAN AMERICAN 54 mL/min (90-120)
[2019-03-18 14:42] LABS: GLUCOSE 192 mg/dL (74-106)
[2019-03-18 14:45] LABS: AMYLASE - SERUM 66 U/L (25-115); LIPASE 132 U/L (73-393); TROPONIN-I < 0.017 ng/mL (0.000-0.060)
[2019-03-18 15:41] LABS: EOSINOPHILS 1 % (0-7); LYMPHOCYTES 15 % (15-50); MONOCYTES 2 % (2-11); NEUTROPHILS 82 % (40-80); PLATELET ESTIMATE NORMAL
--- NOTE | 2019-03-18 15:55 | NUR ---
VERBAL ORDER FROM CAMMY REZA TO START IV FLUIDS 2000 CC STAT. UNABLE TO GET 2ND IV STARTED. WAS GIVEN VERBAL OKAY TO START ONE 1000ML BAG OF NS THEN ONE IMMEDIATELY WHEN THE FIRST WAS FINISHED.
--- NOTE | 2019-03-18 16:00 | NUR ---
STARTED ONE OF TWO BAGS OF NS 0.9% BOLUS.
[2019-03-18 16:44] VITALS: BP 106/68
--- NOTE | 2019-03-18 17:00 | NUR ---
DISCONTINUED ONE OF TWO BAGS OF NS 0.9% AND STARTED 2ND BAG OF NS 0.9% IN L AC.
--- NOTE | 2019-03-18 18:07 | NUR ---
DISCONTINUED 2ND OF TWO BAGS OF NS 0.9% BOLUS.
[2019-03-18] MEDS ORDERED: ATIVAN0.5 MG PO (20:17)
[2019-03-18] MEDS ORDERED: LIPITOR20 MG PO (20:19)
[2019-03-18] MEDS ORDERED: BISACODYL5 MG PO (20:20)
[2019-03-18 21:00] VITALS: BP 122/57
[2019-03-18 21:58] VITALS: BP 122/84; BMI 27.8
[2019-03-18 22:00] VITALS: BP 107/52
[2019-03-18 23:00] VITALS: BP 98/58
--- NOTE | 2019-03-18 23:00 | NUR ---
PLAN DISCUSSED WITH PATIENT. PATIENT DENIES FURTHER NEEDS OR CONCERNS AT THIS TIME. BED LOWERED/LOCKED, CALL LIGHT IN REACH. VSS. WILL CONTINUE TO MONITOR.
[2019-03-19] VITALS (22 sets, daily range): BP systolic 99–137; BP diastolic 57–101
--- NOTE | 2019-03-19 01:00 | NUR ---
PATIENT RESTING, EASILY AROUSABLE. VSS. IV INFUSING WITHOUT SIGNS OF INFILTRATION. DENIES NEEDS OR CONCERNS. BED LOWERED/LOCKED AND CALL LIGHT WITHIN REACH. WILL CONTINUE TO MONITOR.
[2019-03-19 03:22] LABS: BASOPHILS 0.1 % (0-2); EOSINOPHILS 0 % (0-7); HEMATOCRIT 35.7 % (36.0-48.0); HEMOGLOBIN 12.3 g/dL (12-16); IMMATURE GRANULOCYTES 0.4 % (0-5); LYMPHOCYTES 10.6 % (15-50); MCH 31.9 pg (26.0-34.0); MCHC 34.5 g/dL (31.0-37.0); MCV 92.7 fL (80.0-100.0); MEAN PLATELET VOLUME 10.3 fL (7.4-10.4); MONOCYTES 3.3 % (2-11); NEUTROPHILS 85.6 % (40-80); PLATELET COUNT 259 10x3/uL (130-400); RBC 3.85 10x6/uL (4.00-5.40); WBC 23.7 10x3/uL (4.8-10.8)
[2019-03-19 03:35] LABS: INR 1.25 (0.85-1.17); PROTIME 15.2 SECONDS (11.6-15.0)
[2019-03-19 03:52] LABS: ANION GAP 11.6 mmol/L (8-16); BILIRUBIN - TOTAL 0.74 mg/dL (0.2-1.3); CALCIUM 7.9 mg/dL (8.5-10.1); CREATININE - SERUM 0.9 mg/dL (0.6-1.3); POTASSIUM - SERUM 3.6 mmol/L (3.5-5.1); PROTEIN - SERUM 6.3 g/dL (6.4-8.2)
[2019-03-19 03:53] LABS: ALBUMIN 2.3 g/dL (3.4-5.0); TROPONIN-I 0.33 ng/mL (0.000-0.060)
--- NOTE | 2019-03-19 04:19 | NUR ---
SPOKE TO DR. PORTER VIA TELEPHONE REGARDING ELEVATED TROPONIN. NO NEW ORDERS.
--- NOTE | 2019-03-19 06:45 | NUR ---
ASSISTED PATIENT TO BEDSIDE COMMODE. 530ML OF DARK EVIN URINE VOIDED. VSS. PATIENT HELPED BACK INTO BED AND REPOSITIONED. DENIES FURTHER NEEDS OR CONCERNS. IV INFUSING WITHOUT SIGNS OF INFILTRATION. BED LOWERED/LOCKED, CALL LIGHT WITHIN REACH. SCDS ON AND INTACT, NO PROBLEMS. DENIES FURTHER NEEDS OR CONCERNS AT THIS TIME. WILL CONTINUE TO MONITOR.
--- NOTE | 2019-03-19 09:09 | NUR ---
PT TO OR. PREOPS GIVEN AND CONCENTS ON CHART.
[2019-03-19 09:35] LABS: CREATINE KINASE 53 UL (21-215)
[2019-03-19 09:36] LABS: CKMB 1.9 U/L (0.0-3.6)
[2019-03-19 09:52] LABS: % SATURATION 4 % (15-55); IRON 8 ug/dl (35-150); TOTAL IRON BIND CAPACITY 175 ug/dl (260-445); UNSAT IRON BIND CAPACITY 167 ug/dl (150-375)
--- NOTE | 2019-03-19 12:24 | NUR ---
1105-PT BACK FROM OR, VSS, AFEBRILE. ABD LAP INCISIONS CDO WITH R ABD DRAIN TO GRAVITY. RUBBER CUTTING MACHINE TENDER SET UP WITH DAJA. CHANGED FROM MS. INST PT ON USE. PT VERB UNDERSTANDING.
--- NOTE | 2019-03-19 14:33 | NUR ---
DR JACOBS HERE ON ROUNDS. HE STATES THAT OK TO MOVE TO FLOOR TOMORROW.
--- NOTE | 2019-03-19 14:34 | NUR ---
REPORTED TO DR ARLENE DOBBS; THE DRAINAGE COMMING FROM THE RT SIDE OF ABD/GRAVITY DRAINAGE IS DRAINING ON THE BED. NO NEW ORDERS. LINENS CHANGED.
[2019-03-19 15:36] LABS: CKMB 1.8 U/L (0.0-3.6); CREATINE KINASE 61 UL (21-215)
[2019-03-19 15:38] LABS: TROPONIN-I 0.129 ng/mL (0.000-0.060)
--- NOTE | 2019-03-19 17:07 | NUR ---
PT REFUSED REG DINNER AND STATES THAT SHE WOULD RATHER HAVE JELLO AND SPRITE. DRAINAGE TO RT DRAIN ON TO LINENS. LINENS CHANGED.
--- NOTE | 2019-03-19 18:13 | NUR ---
ASST TO BSC TO VOID. PT VOIDS 350CC. DSNG TO RT ABD SATURATED WITH STRAW COLORED DRAINAGE. DSNG REMOVED AND CLEAN 4X4'S APPLIED. HCG BATH GIVEN.
--- NOTE | 2019-03-19 20:45 | NUR ---
NEW IV STARTED, 20 GAUGE TO RT WRIST. PATIENT TOLERATED WELL. IV SALINE LOCKED AND CAPPED.
[2019-03-19 21:14] LABS: CKMB 1.5 U/L (0.0-3.6); CREATINE KINASE 62 UL (21-215); TROPONIN-I 0.098 ng/mL (0.000-0.060)
--- NOTE | 2019-03-19 21:21 | NUR ---
IV TO LT WRIST INFILTRATED. CATHETER REMOVED, NO BLEEDING. DRESSING APPLIED. PATIENT TOLERATED WELL.
--- NOTE | 2019-03-19 23:57 | NUR ---
PATIENT STATES BOLUS OF DILAUDID FROM LOW PRESSURE FIRER HELPED WITH PAIN. PATIENT TRYING TO REST. VSS. IV INFUSING TO RT WRIST WITHOUT SIGNS OF INFILTRATION. BED LOWERED/LOCKED. CALL LIGHT WITHIN REACH. WILL CONTINUE TO MONITOR.
[2019-03-20] VITALS (11 sets, daily range): BP systolic 105–138; BP diastolic 51–72
[2019-03-20 03:00] LABS: BASOPHILS 0.2 % (0-2); EOSINOPHILS 1.8 % (0-7); HEMATOCRIT 32.9 % (36.0-48.0); HEMOGLOBIN 10.7 g/dL (12-16); IMMATURE GRANULOCYTES 0.1 % (0-5); LYMPHOCYTES 13.1 % (15-50); MCH 31.2 pg (26.0-34.0); MCHC 32.5 g/dL (31.0-37.0); MEAN PLATELET VOLUME 10.5 fL (7.4-10.4); MONOCYTES 4.1 % (2-11); NEUTROPHILS 80.7 % (40-80); PLATELET COUNT 246 10x3/uL (130-400); RBC 3.43 10x6/uL (4.00-5.40); RDW 13.9 % (11.5-14.5)
[2019-03-20 03:03] LABS: MCV 95.9 fL (80.0-100.0)
[2019-03-20 03:25] LABS: ALBUMIN 2.2 g/dL (3.4-5.0); ALKALINE PHOSPHATASE 69 U/L (46-116); BILIRUBIN - TOTAL 0.52 mg/dL (0.2-1.3); CALCIUM 7.9 mg/dL (8.5-10.1); CARBON DIOXIDE 26.7 mmol/L (21.0-32.0); CHLORIDE - SERUM 102 mmol/L (98-107); CREATININE - SERUM 0.8 mg/dL (0.6-1.3); GLUCOSE 131 mg/dL (74-106); POTASSIUM - SERUM 3.7 mmol/L (3.5-5.1); PROTEIN - SERUM 5.4 g/dL (6.4-8.2); SODIUM 135 mmol/L (136-145); VANCOMYCIN - TROUGH 12.7 ug/mL (10.0-20.0); eGFR NON AFRICAN AMERICAN 78 mL/min (90-120)
[2019-03-20 03:26] LABS: ALT (SGPT) 7 U/L (10-68); CALC OSMOLALITY 271 mosm/kg (275-300); UREA NITROGEN 12 mg/dL (7-18)
--- NOTE | 2019-03-20 04:30 | NUR ---
CHG BATH GIVEN, COMPLETE LINEN CHANGE AND GOWN CHANGE. PATIENT UP TO BEDSIDE COMMODE. DRAIN DRESSING CHANGED. RUSSO CATHETER CARE GIVEN WELL. URINE SAMPLE WAS COLLECTED FOR LAB TESTING. PATIENT REPOSITIONED IN BED, DENIES FURTHER NEEDS OR CONCERNS AT THIS TIME. BED LOWERED/LOCKED AND CALL LIGHT IN REACH. VSS. WILL CONTINUE TO MONITOR.
[2019-03-20 07:00] LABS: AMORPHOUS SEDIMENT >1+ /lpf (NONE SEEN); APPEARANCE TURBID (CLEAR); BACTERIA FEW /hpf (NONE SEEN); BILIRUBIN NEGATIVE (NEGATIVE); COLOR YELLOW (YELLOW); EPITHELIAL CELLS NSEEN /hpf (0-5); GLUCOSE NEGATIVE (NEGATIVE); KETONE NEGATIVE (NEGATIVE); NITRITE NEGATIVE (NEGATIVE); PROTEIN TRACE mg/dL (NEGATIVE); RED CELLS - URINE NONE SEEN /hpf (0-5); UROBILINOGEN NORMAL (NORMAL); WHITE CELLS - URINE 0-5 /hpf (0-5)
--- NOTE | 2019-03-20 08:28 | NUR ---
PT OOB TO CHAIR. BREAFAST TRAY SERVED AND PT IS EATING BREAKFAST WITH OUT DIFFICULTY.
--- NOTE | 2019-03-20 09:58 | NUR ---
AMB WITH PT IN ICU DEPT. PT AMB FULL LENGTH OF THIS DEPT WITH OUT DIFFICULTY.
--- NOTE | 2019-03-20 14:00 | NUR ---
RCVED PT FROM ICU VIA WHEELCHAIR. ALERT AND ORIENTED WITH NO S/S OF DISTRESS. PT REFUSED WEARING SCDS, PLACED ON TELEMETRY. IV LOCATED TO RIGHT HAND RUNNING LR @ 125ML, DILAUDID TALENT ACQUISITION PARTNER PUMP ALSO PRESENT, PT REPORTS PAIN LEVEL 8/10. FAMILY PRESENT AT THE BEDSIDE. DENIES NEEDS AT THIS TIME.
[2019-03-21 05:00] VITALS: BP 152/80
[2019-03-21 06:32] LABS: BASOPHILS 0.1 % (0-2); EOSINOPHILS 2.5 % (0-7); HEMATOCRIT 29.2 % (36.0-48.0); HEMOGLOBIN 9.8 g/dL (12-16); IMMATURE GRANULOCYTES 0.3 % (0-5); LYMPHOCYTES 20.1 % (15-50); MCH 31.5 pg (26.0-34.0); MCHC 33.6 g/dL (31.0-37.0); MEAN PLATELET VOLUME 10.7 fL (7.4-10.4); MONOCYTES 6.4 % (2-11); NEUTROPHILS 70.6 % (40-80); PLATELET COUNT 210 10x3/uL (130-400); RBC 3.11 10x6/uL (4.00-5.40); RDW 13.5 % (11.5-14.5)
[2019-03-21 06:41] LABS: MCV 93.9 fL (80.0-100.0); WBC 6.8 10x3/uL (4.8-10.8)
[2019-03-21 06:57] LABS: ALKALINE PHOSPHATASE 185 U/L (46-116); ALT (SGPT) 10 U/L (10-68); BILIRUBIN - TOTAL 0.76 mg/dL (0.2-1.3); CALC OSMOLALITY 274 mosm/kg (275-300); CARBON DIOXIDE 28.1 mmol/L (21.0-32.0); CHLORIDE - SERUM 102 mmol/L (98-107); CREATININE - SERUM 0.7 mg/dL (0.6-1.3); GLUCOSE 94 mg/dL (74-106); POTASSIUM - SERUM 3.2 mmol/L (3.5-5.1); PROTEIN - SERUM 5.8 g/dL (6.4-8.2); SODIUM 139 mmol/L (136-145); UREA NITROGEN 4 mg/dL (7-18); eGFR NON AFRICAN AMERICAN > 90 mL/min (90-120)
[2019-03-21 08:06] VITALS: BP 150/76
[2019-03-21 09:47] VITALS: Ht 167.6 cm; Wt 83.0 kg
[2019-03-21 11:49] VITALS: BP 145/88
--- NOTE | 2019-03-21 13:11 | NUR ---
PERIPHERAL IV INFILTRATED IN THE LEFT HAND. DISCONTINUED IV, CATHETER TIP INTACT. TRIED TO RESITED IV TO RIGHT FOREARM, UNSUCCESSFUL. ASKED ANOTHER NURSE, JOLENE GRAFF RN TRIED WITH NO SUCCESS. CALLED MERVAT FROM VASCULAR ACCESS.
--- NOTE | 2019-03-21 14:28 | MORECARE ---
CASE MANAGEMENT DISCHARGE SUMMARY PATIENT: SHERRY DELONG UNIT: [id number] ADM DATE: 03/18/19 AGE: 58 : 62 SEX: F ROOM/BED: D.2237 AUTHOR: OLEG FUENTES PHYSICIAN: REFERRING PHYSICIAN: CLEMENTE PORTER MD DATE OF SERVICE: 03/21/19 Discharge Plan Patient Name: SHERRY DELONG Facility: [facility]:[place] : 1960 Planned Disposition: Anticipated Discharge Date: Discharge Date: Expected LOS: Initial Reviewer: [email or web address] Initial Review Date: 03/21/2019 Generated: 03/21/19 3:28 pm Comments DCP- Discharge Planning Updated by [email or web address]: Yoselyn Escobar on 03/21/19 1:[address] Patient Name: SHERRY DELONG Admission Status: ER Accout number: [id number] Admission Date: 03-18-2019 : 1960 Admission Diagnosis: Attending: CLEMENTE PORTER Current LOS: 3 Anticipated DC Date: Planned Disposition: Primary Insurance: [place] [employer] [place] Discharge Planning Comments: CM met with patient at bedside after explaining CM role and obtaining verbal consent. MET BRIEFLY WITH PATIENT, SHE IS ON WAY TO HAVE EGD DONE. [facility] PLANS TO DC TO HOME AND [facility] HAS A ROOMATE. CM TO FOLLOW. Crm Marketing Manager: Yoselyn Escobar Patient Name: SHERRY DELONG Page 26320 at 1428 All edits/amendments must be made on the electronic document DICTATION DATE: 03/21/191427 BRACE END MAINSPRING FORMER: GISSELL 03/21/191427 RPT#: [id number] DC DATE: STATUS: ADM IN [facility] [address] [place] [address] END OF REPORT
--- NOTE | 2019-03-21 18:45 | NUR ---
I have reviewed this patient and I concur with the Shift Assessment completed by the Licensed Practical Nurse today this shift.
[2019-03-21 19:53] VITALS: BP 134/87
--- NOTE | 2019-03-21 20:00 | NUR ---
ASSESSMENT PER FLOWSHEET. IV PATENT RT AC OF LR AT 125CC'S/HR SITE CLEAR. BEVERAGE MANAGER OF DILAUDID IN USE WITH SETTINGS AT 0.2MG Q10MIN W/4MG Q4H L/O. TELM. SHOWS SR W/HR 78. REFUSES SCD'S. LAP DRSG TO ABD. C/D/I CHOLECYSTECTOMY DRAINAGE TUBE TO RT UPPER QUAD CONNECTED TO RUSSO BAG.
--- NOTE | 2019-03-21 21:30 | NUR ---
MEDS GIVEN PER MAR.
--- NOTE | 2019-03-21 23:42 | NUR ---
EYES CLOSED RESPIRATIONS WITH EASE AND UNLABORED.
[2019-03-22 01:12] VITALS: BP 157/84
[2019-03-22 04:56] VITALS: BP 174/72
[2019-03-22 06:13] LABS: BASOPHILS 0.2 % (0-2); EOSINOPHILS 3.2 % (0-7); HEMATOCRIT 28.9 % (36.0-48.0); HEMOGLOBIN 9.6 g/dL (12-16); IMMATURE GRANULOCYTES 0.3 % (0-5); LYMPHOCYTES 18.7 % (15-50); MCH 31.5 pg (26.0-34.0); MCHC 33.2 g/dL (31.0-37.0); MCV 94.8 fL (80.0-100.0); MEAN PLATELET VOLUME 10.7 fL (7.4-10.4); MONOCYTES 9.9 % (2-11); NEUTROPHILS 67.7 % (40-80); PLATELET COUNT 235 10x3/uL (130-400); RBC 3.05 10x6/uL (4.00-5.40); RDW 13.9 % (11.5-14.5); WBC 6.5 10x3/uL (4.8-10.8)
[2019-03-22 06:16] LABS: ANION GAP 9.7 mmol/L (8-16); BILIRUBIN - TOTAL 0.66 mg/dL (0.2-1.3); CALCIUM 8.4 mg/dL (8.5-10.1); CARBON DIOXIDE 29.1 mmol/L (21.0-32.0); POTASSIUM - SERUM 3.8 mmol/L (3.5-5.1); PROTEIN - SERUM 5.8 g/dL (6.4-8.2); VANCOMYCIN - TROUGH 21.8 ug/mL (10.0-20.0)
[2019-03-22 06:20] LABS: CREATININE - SERUM 0.9 mg/dL (0.6-1.3)
--- NOTE | 2019-03-22 07:10 | NUR ---
ALERT AND ORIENTED, RESTING IN BED. NO C/O PAIN, DILAUDID SPORTS FITNESS AND WELLNESS DIRECTOR MANAGING PAIN AT THIS TIME. ON 2L O2, NC. IV TO RIGHT AC, LR INFUSING @ 125ML/HR. SITE PATENT WITHOUT REDNESS OR SWELLING. POD #1 EGD WITH STENT REMOVAL. JOSE MARIA-DRAIN TO RIGHT UPPER QUADRANT, BLOODY DRAINAGE. REFUSED SCDS. PT DENIES ANY NEEDS AT THIS TIME. CALL LIGHT IN REACH. WILL CONTINUE TO MONITOR.
[2019-03-22 08:31] VITALS: BP 162/80
[2019-03-22] MEDS ORDERED: Nicoderm [PBKC] TRANSDERM (12:26)
[2019-03-22 12:27] VITALS: BP 173/94
[2019-03-22] MEDS ORDERED: FLORAJEN3 CAPS460 MG PO (12:27)
[2019-03-22] MEDS ORDERED: LEVAQUIN750 MG PO (12:29)
[2019-03-22] MEDS ORDERED: CLEOCIN HCL300 MG PO (12:29)
--- NOTE | 2019-03-22 13:50 | MORECARE ---
CASE MANAGEMENT DISCHARGE SUMMARY PATIENT: SHERRY DELONG UNIT: [id number] ADM DATE: 03/18/19 AGE: 58 : 62 SEX: F ROOM/BED: D.2237 AUTHOR: OLEG FUENTES PHYSICIAN: REFERRING PHYSICIAN: CLEMENTE PORTER MD DATE OF SERVICE: 03/22/19 Discharge Plan Patient Name: SHERRY DELONG Facility: [facility]:[place] : 1960 Planned Disposition: Anticipated Discharge Date: Discharge Date: Expected LOS: Initial Reviewer: [email or web address] Initial Review Date: 03/21/2019 Generated: 03/22/19 2:49 pm Comments DCP- Discharge Planning Updated by [email or web address]: Yoselyn Escobar on 03/21/19 1:[address] Patient Name: SHERRY DELONG Admission Status: ER Accout number: [id number] Admission Date: 03-18-2019 : 1960 Admission Diagnosis: Attending: CLEMENTE PORTER Current LOS: 3 Anticipated DC Date: Planned Disposition: Primary Insurance: [place] [employer] Discharge Planning Comments: CM met with patient at bedside after explaining CM role and obtaining verbal consent. MET BRIEFLY WITH PATIENT, SHE IS ON WAY TO HAVE EGD DONE. [facility] PLANS TO DC TO HOME AND [facility] HAS A ROOMATE. CM TO FOLLOW. Collarette Separator: Yoselyn Escobar External Providers External Provider: [facility] Next Contact Date: Service Request Date: Service Type: Resolution: Reviewer: Comments: Last DP export: 03/21/19 1:28 p Patient Name: SHERRY DELONG Page 71721 at 1350 All edits/amendments must be made on the electronic document DICTATION DATE: 03/22/19 134 SILVER SOLUTION MIXER: GISSELL 03/22/19 134 RPT#: [id number] DC DATE: STATUS: ADM IN [facility] [address] [place] [address] END OF REPORT
--- NOTE | 2019-03-22 14:32 | OP ---
PATIENT NAME: SHERRY DELONG MEDICAL RECORD: [id number] :62 LOCATION:D.MS Fine2237 ADMISSION DATE:03/18/19 SURGEON: NOELLE JACOBS MD DATE OF OPERATION: 03/19/2019 PREOPERATIVE DIAGNOSES: Acute cholecystitis with a very thickened gallbladder wall and septicemia. There was also pericholecystic fluid. POSTOPERATIVE DIAGNOSES: Acute cholecystitis with a very thickened gallbladder wall and septicemia. There was also pericholecystic fluid. PROCEDURE: Laparoscopic cholecystostomy tube placement. SURGEON: Noelle Jacobs MD LAB NURSE: None. BLOOD LOSS: Minimal. ANESTHESIA: General. COMPLICATIONS: None. The risks, possible complications and alternatives to the procedure were explained to the patient. She elects to proceed. The discussion specifically included, but was not limited to, bleeding requiring an emergency reoperation, infection, intestinal injury as well as a bile duct injury. OPERATIVE COURSE: The patient was conveyed the operating room urgently on 03/19/2019. General anesthesia was induced by the anesthesia staff. The abdomen was sterilely prepped and draped. A small skin incision was accomplished in the left upper quadrant. A Veress needle was inserted through the skin incision and into the peritoneal cavity. CO2 insufflation was begun. Once a sufficient pneumoperitoneum had been achieved, a 12-mm trocar was inserted at the umbilicus through a small incision. Under direct internal vision, utilizing television camera, a 5-mm trocar was inserted through the incision in the left upper quadrant. Another 5-mm trocar was inserted in the epigastrium. A 12-mm trocar was inserted in the right upper quadrant. During insertion of the Veress needle and all trocars, there appeared to have been no injury to the bowels, any intraperitoneal or retroperitoneal structures. I was able to bluntly dissect the gallbladder away from some adipose tissue. It was very acutely inflamed. There were inflammatory changes around the infundibulum, which was going to make removal of the gallbladder hazardous. Utilizing the hook cautery, I created a small cholecystotomy at the apex of the gallbladder. I inserted a pair of laparoscopic graspers and spread this opening a bit further. I then advanced the laparoscopic graspers out through the 12-mm trocar. I removed the trocar. I then grasped a 24-[place] Stone catheter and then pulled into the abdominal cavity. I placed a Stone catheter down through the cholecystotomy. We then inflated the Stone catheter with 20 cc of normal saline. I then pulled the gallbladder up near the abdominal wall by tugging on the cholecystostomy tube. Utilizing the Tono-Suly suture closure device and 0 Vicryl sutures, I closed the umbilical fascia defect. All the trocars were removed and the abdomen desufflated. OPERATIVE REPORT [id number] SHERRY DELONG The skin incision at the umbilicus was closed with interrupted 4-0 Vicryl Rapide suture. The other skin incisions were closed with interrupted intracuticular 3-0 Vicryls. The cholecystostomy tube was then sutured in place with a 2-0 nylon. I flushed the cholecystostomy tube with normal saline utilizing a 60 cc catheter tip syringe. I also aspirated bile as well as the contents of the gallbladder. I did this several times. The cholecystostomy tube was then attached to a Stone drainage bag. The patient was then extubated and conveyed to post-anesthesia care unit where she was in stable condition. From my standpoint, when she is dismissed home, the cholecystostomy tube can be changed to a leg bag. I will plan to perform an interval laparoscopic cholecystectomy in 6 weeks to 2 months. I will contact Dr. Ribeiro as well to see what plans he has for the biliary stent. TRANSINT:[id number] Voice Confirmation ID: [id number] DOCUMENT ID: [id number] 03/22/2019 Edited for pipe installer error, [email or web address]. NOELLE JACOBS MD at 1432 CC: [id number] DICTATION DATE: 03/19/19 1048 GATE AGENT: 03/19/19 1147 ADM IN [place] [id number] [place] [address]
--- NOTE | 2019-03-22 14:36 | MORECARE ---
CASE MANAGEMENT DISCHARGE SUMMARY PATIENT: SHERRY DELONG UNIT: [id number] ADM DATE: 03/18/19 AGE: 58 : 62 SEX: F ROOM/BED: D.2237 AUTHOR: GINA,DOC PHYSICIAN: REFERRING PHYSICIAN: CLEMENTE PORTER MD DATE OF SERVICE: 03/22/19 Discharge Plan Patient Name: SHERRY DELONG Facility: [facility]:[place] : 1960 Planned Disposition: Anticipated Discharge Date: Discharge Date: Expected LOS: Initial Reviewer: [email or web address] Initial Review Date: 03/21/2019 Generated: 03/22/19 3:35 pm Comments DCP- Discharge Planning Updated by [email or web address]: Nathalia Rice on 03/22/19 1:[address] DC PLAN: Return home today with [facility]. Order received for home health services for drain care. Cm met with patient who reported her pcp is Dr. Vu. She plans to return home today where she lives with a roommate. She reports she is independent. Discussed HH order, BEBE discussed, She stated she used [facility] which is now [facility] and wishes to use them again. BEBE signed for [facility]. Signed copy placed in chart. Referral faxed to [facility]. Spoke to Tatyana at [facility] who stated she would review referral and make sure they are in network with insurance and let cm know if they can/can not take the patient. Patient denied further dc needs at this time. CM will continue to follow and will assist as needed with dc plans/needs. Nathalia Rice RN, [facility] DCP- Discharge Planning Updated by [email or web address]: Yoselyn Escobar on 03/21/19 1:[address] Patient Name: SHERRY DELONG Admission Status: ER Accout number: [id number] Admission Date: 03-18-2019 : 1960 Admission Diagnosis: Attending: CLEMENTE PORTER Current LOS: 3 Anticipated DC Date: Planned Disposition: Primary Insurance: [place] [employer]IONS [place] Discharge Planning Comments: CM met with patient at bedside after explaining CM role and obtaining verbal consent. MET BRIEFLY WITH PATIENT, SHE IS ON WAY TO HAVE EGD DONE. [facility] PLANS TO DC TO HOME AND [facility] HAS A ROOMATE. CM TO FOLLOW. Ergonomist: Yoselyn Miranda DP export: 03/22/19 12:50 p Patient Name: SHERRY DELONG Page 54540 at 1436 All edits/amendments must be made on the electronic document DICTATION DATE: 03/22/191434 RUBBER COMPOUNDER FORMULATOR: GISSELL 03/22/191434 RPT#: [id number] DC DATE: STATUS: ADM IN [facility] [address] [place] [address] END OF REPORT
--- NOTE | 2019-03-22 15:00 | NUR ---
PT DISCHARGED HOME WITH FAMILY VIA WHEELCHAIR. DISCONTINUED IV, CATHETER TIP INTACT. WENT OVER DISCHARGE INSTRUCTIONS WITH PT, PT VERBALIZED UNDERSTANDING. DENIES ANYTHING FURTHER.
--- NOTE | 2019-03-22 15:16 | MORECARE ---
CASE MANAGEMENT DISCHARGE SUMMARY PATIENT: SHERRY DELONG UNIT: [id number] ADM DATE: 03/18/19 AGE: 58 : 62 SEX: F ROOM/BED: D.2237 AUTHOR: GINA,DOC PHYSICIAN: REFERRING PHYSICIAN: CLEMENTE PORTER MD DATE OF SERVICE: 03/22/19 Discharge Plan Patient Name: SHERRY DELONG Facility: [facility]:[place] : 1960 Planned Disposition: Anticipated Discharge Date: Discharge Date: Expected LOS: Initial Reviewer: [email or web address] Initial Review Date: 03/21/2019 Generated: 03/22/19 4:16 pm Comments DCP- Discharge Planning Updated by [email or web address]: Nathalia Rice on 03/22/19 1:[address] DC PLAN: Return home today with [facility]. Order received for home health services for drain care. Cm met with patient who reported her pcp is Dr. Vu. She plans to return home today where she lives with a roommate. She reports she is independent. Discussed HH order, BEBE discussed, She stated she used [facility] which is now [facility] and wishes to use them again. BEBE signed for [facility]. Signed copy placed in chart. Referral faxed to [facility]. Spoke to Tatyana at [facility] who stated she would review referral and make sure they are in network with insurance and let cm know if they can/can not take the patient. Patient denied further dc needs at this time. CM will continue to follow and will assist as needed with dc plans/needs. Nathalia Rice RN, [facility] DCP- Discharge Planning Updated by [email or web address]: Yoselyn Escobar on 03/21/19 1:[address] Patient Name: SHERRY DELONG Admission Status: ER Accout number: [id number] Admission Date: 03-18-2019 : 1960 Admission Diagnosis: Attending: CLEMENTE PORTER Current LOS: 3 Anticipated DC Date: Planned Disposition: Primary Insurance: [place] [employer] [place] Discharge Planning Comments: CM met with patient at bedside after explaining CM role and obtaining verbal consent. MET BRIEFLY WITH PATIENT, SHE IS ON WAY TO HAVE EGD DONE. [facility] PLANS TO DC TO HOME AND [facility] HAS A ROOMATE. CM TO FOLLOW. Expert Medical Writer: Yoselyn Miranda DP export: 03/22/19 1:36 p Patient Name: SHERRY DELONG Page 28755 at 1516 All edits/amendments must be made on the electronic document DICTATION DATE: 03/22/191515 BEHAVIORAL HEALTH DIRECTOR: GISSELL 03/22/191515 RPT#: [id number] DC DATE: STATUS: ADM IN [facility] [address] [place] [address] END OF REPORT
--- NOTE | 2019-03-23 09:05 | MORECARE ---
CASE MANAGEMENT DISCHARGE SUMMARY PATIENT: SHERRY DELONG UNIT: [id number] ADM DATE: 03/18/19 AGE: 58 : 62 SEX: F ROOM/BED: D.2237 AUTHOR: GINA,DOC PHYSICIAN: REFERRING PHYSICIAN: CLEMENTE PORTER MD DATE OF SERVICE: 03/23/19 Discharge Plan Patient Name: SHERRY DELONG Facility: [facility]:[place] : 1960 Planned Disposition: Anticipated Discharge Date: Discharge Date: 03/22/2019 Expected LOS: Initial Reviewer: [email or web address] Initial Review Date: 03/21/2019 Generated: 03/23/19 10:04 am Comments DCP- Discharge Planning Updated by [id number]: Nathalia Rice on 03/22/19 1:[address] DC PLAN: Return home today with [facility]. Order received for home health services for drain care. Cm met with patient who reported her pcp is Dr. Vu. She plans to return home today where she lives with a roommate. She reports she is independent. Discussed HH order, BEBE discussed, She stated she used [facility] which is now [facility] and wishes to use them again. BEBE signed for [facility]. Signed copy placed in chart. Referral faxed to [facility]. Spoke to Tatyana at [facility] who stated she would review referral and make sure they are in network with insurance and let cm know if they can/can not take the patient. Patient denied further dc needs at this time. CM will continue to follow and will assist as needed with dc plans/needs. Nathalia Rice RN, [facility] DCP- Discharge Planning Updated by [id number]: Yoselyn Escobar on 03/21/19 1:[address] Patient Name: SHERRY DELONG Admission Status: ER Accout number: [id number] Admission Date: 03-18-2019 : 1960 Admission Diagnosis: Attending: CLEMENTE PORTER Current LOS: 3 Anticipated DC Date: Planned Disposition: Primary Insurance: [place] [employer] [place] Discharge Planning Comments: CM met with patient at bedside after explaining CM role and obtaining verbal consent. MET BRIEFLY WITH PATIENT, SHE IS ON WAY TO HAVE EGD DONE. [facility] PLANS TO DC TO HOME AND [facility] HAS A ROOMATE. CM TO FOLLOW. Wrapper Operator: Yoselyn Miranda DP export: 03/22/19 2:16 p Patient Name: SHERRY DELONG Page 55553 at 0905 All edits/amendments must be made on the electronic document DICTATION DATE: 03/23/19903 HARP REPAIRER: GISSELL 03/23/19903 RPT#: [id number] DC DATE:03/22/19 STATUS: DIS IN [facility] [address] [place] [address] END OF REPORT
== END 2019-03-22 15:26 | disposition home health service (06) | DRG 853 ==
LOC: D.ER 13:51 → D.ICU 18:40 → D.MS 18:40 → D.ICU 20:15 → D.MS 03-20 14:21
PROVIDERS: Family Medicine; Surgery; ADMIT Internal Medicine Nephrology; ATTEND Internal Medicine Nephrology
PROC: 0F9440Z Drainage of Gallbladder with Drainage Device, Percutaneous Endoscopic Approach (ICD-10-PCS; principal; 2019-03-19 08:30)
PROC: 0FPB4DZ Removal of Intraluminal Device from Hepatobiliary Duct, Percutaneous Endoscopic Approach (ICD-10-PCS; 2019-03-21)
DX: A41.9 Sepsis, unspecified organism (principal); J96.01 Acute respiratory failure with hypoxia; F17.203 Nicotine dependence unspecified, with withdrawal; E87.1 Hypo-osmolality and hyponatremia; K81.9 Cholecystitis, unspecified; R59.0 Localized enlarged lymph nodes; D53.9 Nutritional anemia, unspecified; I10 Essential (primary) hypertension; E78.5 Hyperlipidemia, unspecified; K21.9 Gastro-esophageal reflux disease without esophagitis; R00.2 Palpitations; M54.9 Dorsalgia, unspecified; F32.9 Major depressive disorder, single episode, unspecified

== ENCOUNTER 2019-05-18 07:51 | Day surgery (SDC) | payer MEDICAID ==
[~2019-05-18] VITALS: Ht 167.6 cm; Wt 76.7 kg
[~2019-05-18 07:51] MED LIST changes: +AMBIEN10 MG PO; +ATIVAN0.5 MG PO; +BISACODYL5 MG PO; +CLEOCIN HCL300 MG PO; +FLORAJEN3 CAPS460 MG PO; +LEVAQUIN750 MG PO; +LINZESS145 MCG PO; +LIPITOR20 MG PO; +NEURONTIN 400400 MG PO
[2019-05-18 08:26] LABS: HEMATOCRIT 40.8 % (36.0-48.0); HEMOGLOBIN 12.8 g/dL (12-16); MCH 31.4 pg (26.0-34.0); MCHC 31.4 g/dL (31.0-37.0); MEAN PLATELET VOLUME 10.1 fL (7.4-10.4); RBC 4.08 10x6/uL (4.00-5.40); RDW 14.6 % (11.5-14.5); WBC 8.6 10x3/uL (4.8-10.8)
[2019-05-18] MEDS ORDERED: ACETAMINOPHEN500 M1 PO (09:21)
[2019-05-18 09:22] VITALS: BP 109/79; Ht 167.6 cm; Wt 76.7 kg
--- NOTE | 2019-05-18 15:17 | NUR ---
1445 PT ON RA O2 SATS DROPPED TO LOW 70S. O2 APPLIED AND RETURNED TO 90S SHORTLY. PT BACK ON 02 PER NC. WHEN STIMULATED PT IN SEVERE PAIN BUT FALLS BACK TO SLEEP EASILY. TOLERATING COKE TO DRINK PER REQUEST. NOT READY FOR A TRAY. REINFORCED DRESSING TO MID UPPER ABDOMEN. HOB ELEVATED. FAMILY LEFT AND INSTRUCTED FOR US TO CALL WHEN READY
--- NOTE | 2019-05-18 15:40 | NUR ---
1540 RECIEVED A FULL LIQ TRAY.PT MORE AWAKE AND CALL LIGHT IN REACH. PT CHECKED ON FREQUENTLY
--- NOTE | 2019-05-18 16:28 | NUR ---
1515 PT OFF O2 MORE AWAKE AND DRINKING COFFEE. PT STATED SHE DIDNT SLEEP LAST NIGHT. AND STATED SHE WAS IN PAIN. 1525 MEDICATED PO PAIN
--- NOTE | 2019-05-18 17:48 | NUR ---
1715 PTS FAMILY ARRIVED AND PT WAS CALM PRIOR TO FAMILYS ARRIVAL. PT STARTED WITH PAIN TO ABDOMEN. PTS IV REMOVED AND INSTRUCTIONS GIVEN. PT WAS DRESSED AND ASSISTED TO BATHROOM TO URINATE AND INTO W/C AND CAR. ENCOURAGED PT TO WALK. PT APPEARED TO BE WALKING BETTER AFTER URINATING IN BATHROOM.
--- NOTE | 2019-05-31 11:17 | OP ---
PATIENT NAME: SHERRY DELONG MEDICAL RECORD: [id number] :62 LOCATION:D.OPS ADMISSION DATE: SURGEON: NOELLE JACOBS MD DATE OF OPERATION: 05/18/2019 PREOPERATIVE DIAGNOSES: 1. History of acute cholecystitis. 2. Indwelling cholecystostomy tube. POSTOPERATIVE DIAGNOSES: 1. History of acute cholecystitis. 2. Indwelling cholecystostomy tube. 3. Hepatomegaly. 4. Adhesions in the right upper quadrant. PROCEDURES: 1. Laparoscopic cholecystectomy. 2. Intraoperative cholangiography without immediate surgeon interpretation. 3. A 14-gauge core needle liver biopsy. SURGEON: Noelle Jacobs MD LABORATORY WORKER: None. BLOOD LOSS: Less than 50 cc. ANESTHESIA: General. COMPLICATIONS: None. The risks, possible complications, and alternatives to the procedure were explained to the patient. She elects to proceed. The discussion specifically included, but was not limited to, bleeding requiring emergency reoperation, infection, and bile duct injury. OPERATIVE COURSE: The patient was conveyed to the operating room electively on 05/18/2019. General anesthesia was induced by anesthesia staff. The entire abdomen was sterilely prepped and draped including the cholecystostomy tube. Utilizing a hand injection technique through the indwelling cholecystostomy tube, I attempted an intraoperative cholangiogram. This ended up being an intraoperative cystogram as there was no flow of dye out through the cystic duct and into the common ductal system. I then aspirated the contrast material. A small skin incision was accomplished in the left upper quadrant. A Veress needle was inserted through the skin incision into the peritoneal cavity. CO2 insufflation was begun. Once a sufficient pneumoperitoneum had been achieved, a 5-mm trocar was inserted in the left side of the abdomen. Under direct internal vision, utilizing a television camera, a 12-mm trocar was inserted through an incision at the umbilicus. Another 5-mm trocar was inserted in the epigastrium. Adhesions were noted in the epigastrium as well as right upper quadrant. These were taken down and these were almost all grade I adhesions. These were taken down with the electrocautery as well as with endoscopic scissors. OPERATIVE REPORT [id number] SHERRY DELONG I began to dissect around the gallbladder, which was encased in scar tissue. I bluntly dissected up around the tract through which the Stone catheter, which acted as a cholecystostomy tube, was traveling. I deflated the cholecystostomy balloon. I removed the Stone catheter. I then excised the gallbladder from the anterior abdominal wall with the Hook cautery. The gallbladder was grasped and retracted cephalad. I bluntly dissected down to the infundibulum. The critical view was obtained. A cystic artery was identified which was clipped multiply and divided between clips. At the cholecystostomy entry site in the abdominal wall, I inserted a 12-mm trocar. In the left upper quadrant, I changed out the 5-mm trocar for a 12-mm trocar as I was going to have to use large clips to divide this very large cystic duct. I continued my blunt dissection in the triangle of Calot. The cystic duct was identified. The nondisposable clip primary health care nurse was used with large clips. I then divided the cystic duct between clips. The gallbladder was then excised from its bed in the liver. It was placed within a bag retrieval device and was withdrawn through the umbilical fascia defect. I then replaced the 12-mm trocar. I irrigated and aspirated in the right upper quadrant. The indication for liver biopsy was hepatomegaly. Under laparoscopic guidance, I percutaneously accessed the right upper quadrant utilizing a 14-gauge core needle liver biopsy device. Cores were obtained over the convexity of the liver. The biopsy sites were made hemostatic with the electrocautery. The muscle in the left upper quadrant at the 12-mm trocar site was closed with Tono-Usly suture closure device and 0-Vicryl sutures. The muscle in the right upper quadrant at the 12-mm trocar site was closed with the Tono-Suly suture closure device and 0-Vicryl sutures. All the trocars were removed and the abdomen desufflated. The fascia at the umbilicus was closed with a running 0-Vicryl suture. The skin at the umbilicus was closed with interrupted 4-0 Vicryl Rapide sutures. The skin in the right upper quadrant at the trocar site was closed with a single horizontal mattress 3-0 Vicryl suture. The trocar site in the epigastrium was closed with the single intracuticular 3-0 Vicryl suture. The skin in the left upper quadrant at the 12-mm trocar site was closed with an interrupted intracuticular 3-0 Vicryl suture. Benzoin and Steri-Strips were applied. The patient was then extubated and conveyed to post-anesthesia care unit where she was in stable condition. TRANSINT:[id number] Voice Confirmation ID: [id number] DOCUMENT ID: [id number] OPERATIVE REPORT [id number] SHERRY DELONG ROBERT MD at 1117 CC: [id number] DICTATION DATE: 05/19/191839 MARKETING ANALYST: 05/19/192153 [facility] 05/18/19 [place] [id number]
== END 2019-05-18 17:46 | disposition home or self-care (01) ==
LOC: D.OPS 07:51 → D.PAN 10:00 → D.OPS 10:15 → D.PAN 11:00 → D.OPS 11:00
PROVIDERS: Anesthesiology; ATTEND Surgery
DX: K81.0 Acute cholecystitis (principal); R16.0 Hepatomegaly, not elsewhere classified; K66.0 Peritoneal adhesions (postprocedural) (postinfection)

== ENCOUNTER 2019-05-19 19:58 | Inpatient (IN) | payer MEDICAID ==
[~2019-05-19] VITALS: Ht 167.6 cm; Wt 76.7 kg
[~2019-05-19 19:58] MED LIST changes: +ACETAMINOPHEN500 M1 PO
[2019-05-19 20:26] LABS: BASOPHILS 0.1 % (0-2); EOSINOPHILS 0.2 % (0-7); HEMOGLOBIN 13.6 g/dL (12-16); IMMATURE GRANULOCYTES 0.3 % (0-5); LYMPHOCYTES 8.9 % (15-50); MCH 31.6 pg (26.0-34.0); MCHC 32.4 g/dL (31.0-37.0); MEAN PLATELET VOLUME 10.2 fL (7.4-10.4); MONOCYTES 3.3 % (2-11); NEUTROPHILS 87.2 % (40-80); PLATELET COUNT 332 10x3/uL (130-400); RDW 14.7 % (11.5-14.5)
[2019-05-19 20:30] LABS: MCV 97.7 fL (80.0-100.0); WBC 18.7 10x3/uL (4.8-10.8)
[2019-05-19 20:41] LABS: CALC OSMOLALITY 278 mosm/kg (275-300); CALCIUM 9.4 mg/dL (8.5-10.1); CARBON DIOXIDE 31.9 mmol/L (21.0-32.0); CHLORIDE - SERUM 98 mmol/L (98-107); CREATININE - SERUM 0.8 mg/dL (0.6-1.3); POTASSIUM - SERUM 3.7 mmol/L (3.5-5.1); SODIUM 138 mmol/L (136-145); UREA NITROGEN 9 mg/dL (7-18); eGFR NON AFRICAN AMERICAN 78 mL/min (90-120)
[2019-05-19 20:44] LABS: GLUCOSE 163 mg/dL (74-106)
[2019-05-19 21:03] LABS: ALKALINE PHOSPHATASE 92 U/L (46-116); ALT (SGPT) 37 U/L (10-68); AMYLASE - SERUM 51 U/L (25-115); BILIRUBIN - TOTAL 0.56 mg/dL (0.2-1.3); LIPASE 72 U/L (73-393)
[2019-05-19 21:48] LABS: APPEARANCE CLEAR (CLEAR); BILIRUBIN NEGATIVE (NEGATIVE); COLOR YELLOW (YELLOW); GLUCOSE NEGATIVE (NEGATIVE); KETONE NEGATIVE (NEGATIVE); NITRITE NEGATIVE (NEGATIVE); PROTEIN NEGATIVE (NEGATIVE); UROBILINOGEN NORMAL (NORMAL)
--- NOTE | 2019-05-19 22:16 | NUR ---
PT HAD GB REMOVED YESTERDAY, HAVING PAIN AND NAUSEA TODAY, NO S/S OF INFECTION AT INCISION SITE.
[2019-05-19 23:00] VITALS: BP 140/85
--- NOTE | 2019-05-19 23:20 | NUR ---
PT STATES SHE IS HAVING ABD SPASMS DESCRIBED FEELING LIKE HICCUPS, FAMILY AT BEDSIDE. PROVIDER NOTIFIED, BACK FROM CT.
[2019-05-20] VITALS (7 sets, daily range): BP systolic 95–173; BP diastolic 68–82; Ht 167.6 cm; Wt 76.7 kg
--- NOTE | 2019-05-20 00:45 | NUR ---
PT BROUGHT TO FLOOR VIA STRETCHER. TRANSFERED PT TO BED. AOX4, WITHOUT DISTRESS. STATES PAIN IN ABD 02/12. BOWEL SOUNDS HYPOACTIVE X4. IV LEFT AC SL, DRESSING CDI. FLUSHES EASILY, NO REDNESS OR SWELLING. ABD DISTENDED, TENDER TO TOUCH. LAP SITES X4, DRESSING CDI. PT STATES SHE HAS NOT HAD BOWEL MOVEMENT SINCE THURSDAY. NOT PASSING GAS. DENIES NEEDS AT THIS TIME. CL IN REACH, WILL CTM
[2019-05-20] MEDS ORDERED: HYDROCODON-ACE1 EAC7 PO (01:22)
[2019-05-20 01:57] LABS: BASOPHILS 0.1 % (0-2); EOSINOPHILS 0.4 % (0-7); HEMATOCRIT 38.8 % (36.0-48.0); HEMOGLOBIN 12.4 g/dL (12-16); IMMATURE GRANULOCYTES 0.3 % (0-5); LYMPHOCYTES 11.3 % (15-50); MCH 31.2 pg (26.0-34.0); MCV 97.5 fL (80.0-100.0); MONOCYTES 4.8 % (2-11); NEUTROPHILS 83.1 % (40-80); PLATELET COUNT 278 10x3/uL (130-400); RBC 3.98 10x6/uL (4.00-5.40); RDW 14.6 % (11.5-14.5); WBC 14.4 10x3/uL (4.8-10.8)
[2019-05-20 02:29] LABS: ALBUMIN 2.8 g/dL (3.4-5.0); ALKALINE PHOSPHATASE 76 U/L (46-116); ALT (SGPT) 31 U/L (10-68); BILIRUBIN - TOTAL 0.42 mg/dL (0.2-1.3); CALC OSMOLALITY 272 mosm/kg (275-300); CALCIUM 8.9 mg/dL (8.5-10.1); CHLORIDE - SERUM 99 mmol/L (98-107); CKMB 0.3 U/L (0.0-3.6); CREATINE KINASE 48 UL (21-215); CREATININE - SERUM 0.7 mg/dL (0.6-1.3); GLUCOSE 123 mg/dL (74-106); POTASSIUM - SERUM 3.7 mmol/L (3.5-5.1); PROTEIN - SERUM 7.2 g/dL (6.4-8.2); SODIUM 137 mmol/L (136-145); UREA NITROGEN 8 mg/dL (7-18); eGFR NON AFRICAN AMERICAN > 90 mL/min (90-120)
--- NOTE | 2019-05-20 07:05 | NUR ---
LYING IN BED,WITHOUT DISTRESS.DENIES NEEDS.CALL LIGHT USE INSTRUCTED.
--- NOTE | 2019-05-20 08:00 | NUR ---
ASSESSMENT PER FLOW SHEET. PT IS WITHOUT DISTRESS.CALL LIGHT IN REACH
[2019-05-20 09:15] LABS: CKMB 0.5 U/L (0.0-3.6); CREATINE KINASE 41 UL (21-215)
[2019-05-20 09:16] LABS: TROPONIN-I 0.089 ng/mL (0.000-0.060)
[2019-05-20 15:25] LABS: CKMB 0.1 U/L (0.0-3.6); CREATINE KINASE 35 UL (21-215); TROPONIN-I 0.055 ng/mL (0.000-0.060)
[2019-05-21 01:13] VITALS: BP 106/54
[2019-05-21 04:37] VITALS: BP 124/60
--- NOTE | 2019-05-21 06:15 | NUR ---
PT C/O ABDOMINAL PAIN 02/12. GAVE MORPHINE 4 MG IV PUSH. ENCOURAGED PT TO WALK AGAIN. PT WALKED HALLS EARLIER IN SHIFT. NO OTHER NEEDS. WILL CONTINUE TO MONITOR.
[2019-05-21 06:39] LABS: BASOPHILS 0.2 % (0-2); EOSINOPHILS 3.5 % (0-7); HEMATOCRIT 33.1 % (36.0-48.0); HEMOGLOBIN 10.4 g/dL (12-16); IMMATURE GRANULOCYTES 0.2 % (0-5); LYMPHOCYTES 22.9 % (15-50); MCH 31.3 pg (26.0-34.0); MCHC 31.4 g/dL (31.0-37.0); MEAN PLATELET VOLUME 10.4 fL (7.4-10.4); MONOCYTES 8.2 % (2-11); PLATELET COUNT 266 10x3/uL (130-400); RBC 3.32 10x6/uL (4.00-5.40); RDW 15.1 % (11.5-14.5)
[2019-05-21 06:41] LABS: MCV 99.7 fL (80.0-100.0); WBC 9.2 10x3/uL (4.8-10.8)
[2019-05-21 06:43] LABS: ALBUMIN 2.4 g/dL (3.4-5.0); ALKALINE PHOSPHATASE 63 U/L (46-116); BILIRUBIN - TOTAL 0.39 mg/dL (0.2-1.3); CALC OSMOLALITY 275 mosm/kg (275-300); CALCIUM 8.6 mg/dL (8.5-10.1); CARBON DIOXIDE 28.1 mmol/L (21.0-32.0); CHLORIDE - SERUM 104 mmol/L (98-107); CREATININE - SERUM 0.7 mg/dL (0.6-1.3); GLUCOSE 101 mg/dL (74-106); POTASSIUM - SERUM 3.2 mmol/L (3.5-5.1); PROTEIN - SERUM 6.3 g/dL (6.4-8.2); SODIUM 139 mmol/L (136-145); UREA NITROGEN 7 mg/dL (7-18); eGFR NON AFRICAN AMERICAN > 90 mL/min (90-120)
[2019-05-21 06:45] LABS: ALT (SGPT) 18 U/L (10-68)
[2019-05-21 08:22] VITALS: BP 132/64
[2019-05-21] MEDS ORDERED: NICODERM C1 PATCH .2 TRANSDERM (12:00)
[2019-05-21 12:57] VITALS: BP 114/66
--- NOTE | 2019-05-23 09:28 | EC ---
PATIENT:SHERRY DELONG DATE OF SERVICE: 05/19/19 SEX: F MEDICAL RECORD: [id number] DATE OF : 62 LOCATION:D.MS Fine221 AGE OF PATIENT: 58 ADMISSION DATE: 05/19/19 REFERRING PHYSICIAN: INTERPRETING PHYSICIAN: PASCALE HIGH MD ECHOCARDIOGRAM REPORT ECHO CHARGES 4 ECHO COMPLETE Date: 05/20/19 CLINICAL DIAGNOSIS: LA ECHOCARDIOGRAPHIC MEASUREMENTS (adult normal given) AC root (d.<3.7cm) 3.4 cm LV Septum d (<1.2 cm> 1.1 cm Valve Excursion 1.8 cm LV Septum (systole) 1.6 cm Left Atria (s.<4.0cm> 3.2 cm LVPW d(<1.2cm) 1.6 cm RV (d.<2.3cm) 4.5 cm LVPW (sytole) 1.9 cm LV diastole(<5.6CM) 6.0 cm MV E-F(>70mm/sec) cm LV systole 4.4 cm LVOT Diameter 1.9 cm MV exc.(>10mm) 1.4 cm Est.ejection fraction (50-75%) % DOPPLER: LVIT cm/sec A 105 cm/sec E 64.0 cm/sec LA cm/sec RVSP 19 mmHg LVOT 117 cm/sec AOP1/2T m/s Asc. Ao 153 cm/sec RVOT 111 cm/sec RA cm/sec PA 152 cm/sec AV Gradient Peak 9.31 mmHg AV Mean 5.84 mmHg AV Area 2.3 cm MV Gradient Peak 6.81 mmHg MV Mean 2.02 mmHg MV Area cm COMMENTS: Pad Tufter: Bernard SCRUGGS Musical Instrument Maker: 1 Dr. High TAPE# PACS Pericardial Effusion Y DATE OF SERVICE: FINDINGS: 1. Left ventricular chamber size is within normal limits. Left ventricular systolic function is normal. Overall ejection fraction estimated at 55%. 2. Left atrium is enlarged at 4.5 cm. Right atrium and right ventricular chamber sizes are within normal limits. 3. Valvular structures have normal structure and motion. 4. Doppler interrogation reveals mild mitral regurgitation. No other valvular insufficiency or stenosis. Pulmonary systolic pressure is estimated at 19 mmHg. ECHOCARDIOGRAM REPORT [id number] SHERRY DELONG 5. No evidence of pericardial effusion or left ventricular thrombus. TRANSINT:[id number] Voice Confirmation ID: [id number] DOCUMENT ID: [id number] PASCALE HIGH MD at 0928 CC: [id number] DICTATION DATE: 05/21/191103 OB/GYN NURSE: 05/21/19 1112 DIS IN 05/21/19 [place] [id number] [place] [id number]
--- NOTE | 2019-05-23 09:28 | CN ---
PATIENT NAME:SHERRY LLOYD MEDICAL RECORD: [id number] : 62 LOCATION:D.MS Fine2216 ADMIT DATE: 05/19/19 ACCOUNT: [id number] CONSULTING PHYSICIAN: PASCALE SUMNER MD REFERRING PHYSICIAN: CLEMENTE PORTER MD DATE OF CONSULTATION: 05/20/2019 DIAGNOSES: 1. Non-Q-wave myocardial infarction. 2. Postop cholecystectomy. 3. Peripheral vascular disease. 4. Hyperlipidemia. HISTORY OF PRESENT ILLNESS: Mrs. Lloyd has no history of ischemic heart disease. She presents 1 day after surgery with abdominal pain, nausea, vomiting. Troponin is elevated. She has no EKG changes. She denies any overt chest pain. She does not have a family history of coronary artery disease. PHYSICAL EXAMINATION: CONSTITUTIONAL/GENERAL APPEARANCE: Well nourished, well developed, appears stated age. EYES: Lids and conjunctivae noninjected. No discharge. No pallor. ENT: Lips within normal limit. No cyanosis. No pallor. NECK: Carotid arteries, bilateral normal upstroke. No bruits. No thrills. No jugular venous pressure or distention. CERVICAL LYMPH NODES: Nontender. Nonenlarged. THYROID: Not enlarged. No nodules. CARDIOVASCULAR: Precordial exam, nondisplaced. No heaves or pericardial thrills. Rate and rhythm, regular. Heart sounds, normal S1, normal S2. No S3, no gallop, no rub. Systolic murmur, not heard. Diastolic murmur, not heard. RESPIRATORY: Respiratory effort, unlabored. Normal curvature. No thoracic deformity. No chest wall tenderness. Percussion, resonant. Auscultation, clear. No wheezes, no rales, no rhonchi. ABDOMEN: Soft, nondistended, nontender. No abdominal pain, no vomiting and normal appetite. MUSCULOSKELETAL: No joint tenderness, normal gait, normal tone. SKIN: Warm and dry. REVIEW OF SYSTEMS: The patient reports easy bruising but reports no swollen glands. The patient reports no fever, no night sweats, no significant weight gain, no significant weight loss. No significant exercise tolerance. The patient reports no dry eyes, no irritation, no vision change. Patient reports no difficulty hearing and no ear pain. Patient reports no frequent nose bleeds or nose and sinus problems. Patient reports on arm pain on exertion. No shortness of breath while lying down. No history of heart murmur. Patient reports no cough, no wheezing or coughing up blood. Patient reports no abdominal pain, no vomiting. Normal appetite. No diarrhea and not vomiting blood. No nausea and no constipation. Patient reports no incontinence. No difficulty urinating. No hematuria. No increased frequency. Patient reports no muscle aches. No weakness, no arthralgias, no back pain. No swelling of the extremities. Patient reports no abnormal mole, no jaundice, no rashes. Reports no loss of consciousness. No weakness and no numbness. No seizures, dizziness, or headaches. The patient reports no depression, no sleep disturbance, feeling safe in a relationship and no alcohol abuse. Patient reports on fatigue. Reports no runny nose or sinus pressure. No itching, no hives, and no frequent CONSULT REPORT [id number] SHERRY LLOYD sneezing. FAMILY HISTORY: Negative for coronary artery disease or ischemic heart disease. SOCIAL HISTORY: Lives and works in the [place] area. Denies smoking or ETOH. OVERALL IMPRESSION: Abdominal discomfort, no chest discomfort, elevated troponin, most likely secondary to the stress of everything going on from a GI standpoint. However, she will need a workup in the future as this is a non-Q-wave myocardial infarction. We will get an echocardiogram now. Center medical management on treatment of the abdominal acute problem. We will risk stratify with stress testing Cardiolite imaging as an outpatient unless she develops chest pain or becomes unstable. TRANSINT:[id number] Voice Confirmation ID: [id number] DOCUMENT ID: [id number] PASCALE SUMNER MD at 0928 CC: [id number] DICTATION DATE: 05/20/19 1233 DIRECTOR OF EVENTS: 05/20/19 1252 DIS IN 05/21/19 [place] [id number] [place] [id number]
== END 2019-05-21 14:45 | disposition home or self-care (01) | DRG 391 ==
LOC: D.ER 19:58 → D.MS 23:52
PROVIDERS: Family Medicine; ADMIT Internal Medicine Nephrology; ATTEND Internal Medicine Nephrology
DX: K91.0 Vomiting following gastrointestinal surgery (principal); I21.4 Non-ST elevation (NSTEMI) myocardial infarction; K91.870 Postprocedural hematoma of a digestive system organ or structure following a digestive system procedure; F17.203 Nicotine dependence unspecified, with withdrawal; G89.18 Other acute postprocedural pain; D72.829 Elevated white blood cell count, unspecified; E86.0 Dehydration; G62.9 Polyneuropathy, unspecified; G25.81 Restless legs syndrome; I73.9 Peripheral vascular disease, unspecified; I10 Essential (primary) hypertension; R00.2 Palpitations; K21.9 Gastro-esophageal reflux disease without esophagitis; M54.9 Dorsalgia, unspecified; F32.9 Major depressive disorder, single episode, unspecified; F12.90 Cannabis use, unspecified, uncomplicated; M19.90 Unspecified osteoarthritis, unspecified site; R60.9 Edema, unspecified; E78.5 Hyperlipidemia, unspecified